=== PATIENT | male | born 1960 | race Hispanic/Latino ===

== ENCOUNTER 2017-01-15 11:10 | Day surgery (SDC) | payer MEDICARE, MEDICAID ==
[2017-01-15] MEDS ORDERED: diphenhydrAMINE HCl 25 MG CAP PO SCH (11:30)
[2017-01-15] MEDS ORDERED: Acetaminophen 500 MG TAB PO SCH (11:30)
[2017-01-15 17:59] VITALS: BP 116/62; TEMP 98
[2017-01-15 18:20] LABS: #Eosinphils 0.1 thou/uL (0.0-0.7); #Lymphocytes 0.6 thou/uL (1.20-3.40); #Monocytes 0.2 thou/uL (0.11-0.59); #Neutrophils 2.1 thou/uL (1.40-6.50); %Basophils 0.6 % (0.0-1.0); %Eosinophils 2.1 % (0.0-10.0); %Lymphocytes 19.8 % (21.0-51.0); %Monocytes 7.8 % (0.0-10.0); Hematocrit 27.2 % (42.0-52.0)
== END 2017-01-15 18:21 | disposition home or self-care (01) ==
LOC: ONC/OP 11:10
PROVIDERS: ATTEND Internal Medicine Hematology & Oncology
PROC: 30233N1 Transfusion of Nonautologous Red Blood Cells into Peripheral Vein, Percutaneous Approach (ICD-10-PCS; principal; 2017-01-15)
DX: D64.9 Anemia, unspecified (principal); D69.59 Other secondary thrombocytopenia; C09.9 Malignant neoplasm of tonsil, unspecified; K76.9 Liver disease, unspecified; E03.9 Hypothyroidism, unspecified; D61.818 Other pancytopenia; Z90.49 Acquired absence of other specified parts of digestive tract; Z80.0 Family history of malignant neoplasm of digestive organs
CPT/HCPCS: 36415; 36430; 77386; 82728; 85025; 86850; 86900; 86901; P9016

== ENCOUNTER 2017-02-05 10:48 | Day surgery (SDC) | payer MEDICARE, MEDICAID ==
[2017-02-05] MEDS ORDERED: Acetaminophen 500 MG TAB PO SCH ×2 (11:15)
[2017-02-05] MEDS ORDERED: diphenhydrAMINE HCl 25 MG CAP PO SCH ×2 (11:15)
[2017-02-05] MEDS ORDERED: Sodium Chloride 0.9% 20 ML ONE (12:14)
[2017-02-05 17:43] VITALS: BP 125/69; TEMP 98
== END 2017-02-05 17:43 | disposition home or self-care (01) ==
LOC: ONC/OP 10:48
PROVIDERS: ATTEND Internal Medicine Hematology & Oncology
PROC: 30233N1 Transfusion of Nonautologous Red Blood Cells into Peripheral Vein, Percutaneous Approach (ICD-10-PCS; principal; 2017-02-05)
DX: D64.9 Anemia, unspecified (principal); D69.6 Thrombocytopenia, unspecified; R16.2 Hepatomegaly with splenomegaly, not elsewhere classified; Q78.2 Osteopetrosis; Z90.49 Acquired absence of other specified parts of digestive tract; Z85.09 Personal history of malignant neoplasm of other digestive organs; Z80.0 Family history of malignant neoplasm of digestive organs
CPT/HCPCS: 36415; 36430; 77014; 77280; 77412; 86850; 86900; 86901; A4216; P9016

== ENCOUNTER 2017-02-26 12:29 | Emergency (ER) | payer MEDICARE, MEDICAID | END 2017-02-26 14:11 | disposition home or self-care (01) | LOC: ERS 12:29 | DX: K08.89 Other specified disorders of teeth and supporting structures (principal); K13.70 Unspecified lesions of oral mucosa; D64.9 Anemia, unspecified; Z85.09 Personal history of malignant neoplasm of other digestive organs | CPT/HCPCS: 99282 ==

== ENCOUNTER 2017-03-06 12:28 | Day surgery (SDC) | payer MEDICARE, MEDICAID ==
[2017-03-06] MEDS ORDERED: diphenhydrAMINE 25 MG CAP PO SCH (12:45)
[2017-03-06] MEDS ORDERED: Acetaminophen 500 MG TAB PO SCH (12:45)
[2017-03-06 19:17] VITALS: BP 120/58
[2017-03-06 21:47] LABS: Hematocrit 23.1 % (42.0-52.0); Mean Platelet Volume 9.3 fL (7.4-10.4); Red Blood Cell (RBC) Count 2.61 mill/uL (4.70-6.10)
[2017-03-06 22:07] LABS: Band 17 % (5-11); Metamyelocyte 3 % (0-0); Myelocyte 1 % (0-0); Neutrophil 57 % (42-75); Nucleated RBC 9 % (0); Polychromasia SLIGHT = 2-3 cells (100X) (0-2/hpf)
[2017-03-06 22:58] VITALS: TEMP 98.2
== END 2017-03-06 22:40 | disposition home or self-care (01) ==
LOC: ONC/OP 12:28
PROVIDERS: ATTEND Internal Medicine Medical Oncology
PROC: 30233N1 Transfusion of Nonautologous Red Blood Cells into Peripheral Vein, Percutaneous Approach (ICD-10-PCS; principal; 2017-03-06)
DX: D64.9 Anemia, unspecified (principal); D69.6 Thrombocytopenia, unspecified; M81.0 Age-related osteoporosis without current pathological fracture; R16.2 Hepatomegaly with splenomegaly, not elsewhere classified; Z90.49 Acquired absence of other specified parts of digestive tract; Z85.09 Personal history of malignant neoplasm of other digestive organs; Z80.0 Family history of malignant neoplasm of digestive organs
CPT/HCPCS: 36415; 36430; 85025; 86850; 86900; 86901; P9016

== ENCOUNTER 2017-04-17 10:38 | Day surgery (SDC) | payer MEDICARE, MEDICAID ==
[2017-04-17] MEDS ORDERED: Sodium Chloride 0.9% 20 ML ONE (11:00)
[2017-04-17 12:20] VITALS: TEMP 98
[2017-04-17] MEDS ORDERED: diphenhydrAMINE 25 MG CAP PO SCH (13:00)
[2017-04-17] MEDS ORDERED: Acetaminophen 500 MG TAB PO SCH (13:00)
[2017-04-17 17:05] VITALS: BP 125/68
[2017-04-17 17:56] LABS: Anisocytosis SLIGHT = 6-15 cells (100X) (0-5/hpf); Band 3 % (5-11); Hematocrit 26.6 % (42.0-52.0); Mean Platelet Volume 6.7 fL (7.4-10.4); Metamyelocyte 2 % (0-0); Neutrophil 53 % (42-75); Nucleated RBC 11 % (0); Polychromasia SLIGHT = 2-3 cells (100X) (0-2/hpf); Reactive Lymphocytes 3 % (0-10); White Blood Cell (WBC) Count 2.3 thou/uL (4.8-10.8)
== END 2017-04-17 17:16 | disposition home or self-care (01) ==
LOC: ONC/OP 10:38
PROVIDERS: ATTEND Nurse Practitioner Acute Care
PROC: 30233N1 Transfusion of Nonautologous Red Blood Cells into Peripheral Vein, Percutaneous Approach (ICD-10-PCS; principal; 2017-04-17)
DX: D64.9 Anemia, unspecified (principal); D69.6 Thrombocytopenia, unspecified; Z90.49 Acquired absence of other specified parts of digestive tract
CPT/HCPCS: 36430; 85025; 86850; 86900; 86901; A4216; P9016

== ENCOUNTER 2017-05-16 12:32 | Day surgery (SDC) | payer MEDICARE, MEDICAID ==
[2017-05-16] MEDS ORDERED: diphenhydrAMINE 25 MG CAP PO SCH (13:15)
[2017-05-16] MEDS ORDERED: Acetaminophen 500 MG TAB PO SCH (13:15)
[2017-05-16] MEDS ORDERED: Sodium Chloride 0.9% 20 ML ONE (13:37)
[2017-05-16 19:25] VITALS: BP 112/61; TEMP 98.9
[2017-05-16 19:56] LABS: Hemoglobin 8.7 g/dL (14.0-18.0); Mean Corpuscular HGB CONC 32.7 g/dL (32.0-36.0); Mean Corpuscular Hemoglobin 29.9 pg (27.0-31.0); Mean Corpuscular Volume 91.4 fl (80.0-94.0); Mean Platelet Volume 10.5 fL (7.4-10.4); Platelet Count 52 thou/uL (130-400); RBC Distribution Width 17.7 % (11.5-14.5); Red Blood Cell (RBC) Count 2.89 mill/uL (4.70-6.10); White Blood Cell (WBC) Count 3.1 thou/uL (4.8-10.8)
[2017-05-16 20:17] LABS: Anisocytosis MODERATE=16-30 cells (100X) (0-5/hpf); Band 16 % (5-11); Eosinophils 4 % (0-10); Lymphocytes 24 % (21-51); MDiff Complete? YES; Metamyelocyte 4 % (0-0); Monocytes 8 % (0-10); Myelocyte 7 % (0-0); Neutrophil 35 % (42-75); Nucleated RBC 8 % (0); Ovalocytes SLIGHT = 2-5 cells (100X) (0-1/hpf); PLT Morphology Comment Appears Decreased; Polychromasia MODERATE = 3-4 cells (100X) (0-2/hpf); Promyelocytes 1 % (0-0)
== END 2017-05-16 19:32 | disposition home or self-care (01) ==
LOC: ONC/OP 12:32
PROVIDERS: ATTEND Internal Medicine Hematology & Oncology
PROC: 30233N1 Transfusion of Nonautologous Red Blood Cells into Peripheral Vein, Percutaneous Approach (ICD-10-PCS; principal; 2017-05-16)
DX: D64.9 Anemia, unspecified (principal); D69.59 Other secondary thrombocytopenia; M81.0 Age-related osteoporosis without current pathological fracture; D70.4 Cyclic neutropenia; Z98.890 Other specified postprocedural states; Z85.89 Personal history of malignant neoplasm of other organs and systems; Z86.010 Personal history of colon polyps
CPT/HCPCS: 36415; 36430; 85025; 86850; 86900; 86901; A4216; P9016

== ENCOUNTER 2017-06-11 12:49 | Day surgery (SDC) | payer MEDICARE, MEDICAID ==
[2017-06-11] MEDS ORDERED: diphenhydrAMINE 25 MG CAP PO SCH (13:30)
[2017-06-11] MEDS ORDERED: Acetaminophen 500 MG TAB PO SCH (13:30)
[2017-06-11] MEDS ORDERED: Sodium Chloride 0.9% 30 ML ONE (14:04)
[2017-06-11 22:01] VITALS: BP 117/62; TEMP 98.3
[2017-06-11 22:54] LABS: Anisocytosis SLIGHT = 6-15 cells (100X) (0-5/hpf); Band 6 % (5-11); Hemoglobin 9.5 g/dL (14.0-18.0); Lymphocytes 24 % (21-51); MDiff Complete? YES; Mean Corpuscular HGB CONC 32.9 g/dL (32.0-36.0); Mean Corpuscular Hemoglobin 29.5 pg (27.0-31.0); Mean Corpuscular Volume 89.8 fl (80.0-94.0); Monocytes 1 % (0-10); Neutrophil 69 % (42-75); Nucleated RBC 2 % (0); PLT Morphology Comment Appears Decreased; Platelet Count 54 thou/uL (130-400); RBC Distribution Width 16.2 % (11.5-14.5); Red Blood Cell (RBC) Count 3.21 mill/uL (4.70-6.10); White Blood Cell (WBC) Count 4.1 thou/uL (4.8-10.8)
== END 2017-06-11 22:14 | disposition home or self-care (01) ==
LOC: ONC/OP 12:49
PROVIDERS: ATTEND Nurse Practitioner Acute Care
PROC: 30233N1 Transfusion of Nonautologous Red Blood Cells into Peripheral Vein, Percutaneous Approach (ICD-10-PCS; principal; 2017-06-11)
DX: D64.9 Anemia, unspecified (principal); D69.59 Other secondary thrombocytopenia; M81.0 Age-related osteoporosis without current pathological fracture; R16.2 Hepatomegaly with splenomegaly, not elsewhere classified; Z90.49 Acquired absence of other specified parts of digestive tract; Z85.09 Personal history of malignant neoplasm of other digestive organs
CPT/HCPCS: 36415; 36430; 85025; 86850; 86900; 86901; A4216; P9016

== ENCOUNTER 2017-07-22 09:58 | Day surgery (SDC) | payer MEDICARE, MEDICAID ==
[2017-07-22] MEDS ORDERED: Sodium Chloride 0.9% 20 ML ONE (10:37)
[2017-07-22] MEDS ORDERED: diphenhydrAMINE 25 MG CAP PO SCH (11:00)
[2017-07-22] MEDS ORDERED: Acetaminophen 500 MG TAB PO SCH (11:00)
[2017-07-22 14:07] VITALS: TEMP 97.6
[2017-07-22 16:11] VITALS: BP 110/63
== END 2017-07-22 16:12 | disposition home or self-care (01) ==
LOC: ONC/OP 09:58
PROVIDERS: ATTEND Internal Medicine Hematology & Oncology
PROC: 30233N1 Transfusion of Nonautologous Red Blood Cells into Peripheral Vein, Percutaneous Approach (ICD-10-PCS; principal; 2017-07-22)
DX: Q78.2 Osteopetrosis (principal); D63.8 Anemia in other chronic diseases classified elsewhere; D69.59 Other secondary thrombocytopenia; R16.2 Hepatomegaly with splenomegaly, not elsewhere classified; Z90.49 Acquired absence of other specified parts of digestive tract; Z85.09 Personal history of malignant neoplasm of other digestive organs
CPT/HCPCS: 36430; 86850; 86900; 86901; A4216; P9016

== ENCOUNTER 2017-07-24 08:10 | Outpatient (CLI) | payer MEDICARE, MEDICAID ==
--- NOTE | 2017-07-24 10:35 | HP ---
DATE OF SERVICE: 07/24/2017 HISTORY OF PRESENT ILLNESS: Mr. Kareem Rivers is a very pleasant 56-year-old gentleman, Sp alvaro speaking only, who is referred for evaluation for hyperbaric oxygen therapy for treatment of ch ronic osteomyelitis. 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 Praveen South. Today, the patient presen ts with a lesion of the right jaw which is draining purulent material. Records accompanying the angie ent showed that the patient was seen on 06/07/2017 and cultures were taken of the right mandibular ma ss which was draining purulent material. Apparently, the patient was given amoxicillin and Bactrim e mpirically and the patient reported on 06/11/2017 that his pain had diminished and that he was able t o sleep at night. The patient also has an appointment for evaluation by Dr. Fer Cooper of Infecti ous Diseases on 07/30/2017 for evaluation for IV antibiotics for treatment of mandibular osteomyeliti s. The patient's medical history is significant for multiple oral surgeries and a history of recurre nt periodontal abscesses. PAST MEDICAL HISTORY: 1. Chronic back pain. 2. 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 4. Scoliosis. 5. Anemia. 6. 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 PAST SURGICAL HISTORY: 1. Right femur fracture repair. 2. Multiple oral surgeries. 3. I&D of mandibular abscess. 4. 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 5. Laparoscopic cholecystectomy. MEDICATIONS: The patient states he is not taking any medications at the present time. ALLERGIES: No known diagnosed allergies. SOCIAL HISTORY: The patient denies any current history of tobacco or ETOH use. FAMILY HISTORY: Noncontributory. PHYSICAL EXAMINATION: VITAL SIGNS: Temperature 97.9, pulse 82, respirations 14, blood pressure 129/62. GENERAL: A 56-year-old gentleman sitting on chair in examination room in no acute distress. HEENT: Normocephalic. A cutaneous lesion of the right jaw is present which measures approximately 2 .0 x 1.0 cm. The lesion is associated with the drainage of purulent material. No cellulitis of the right jaw is appreciated. No maceration of the skin of the right jaw is present. NECK: No nuchal rigidity. CHEST: Clear to auscultation. CARDIAC: Regular rate and rhythm. ABDOMEN: Soft. EXTREMITIES: No clubbing or cyanosis. NEUROLOGIC: Grossly nonfocal. ASSESSMENT AND PLAN: 1. Chronic osteomyelitis of the mandible. The patient has been referred to the [facility] for dhruv dinaation for hyperbaric oxygen therapy. The patient also has an appointment for evaluation by Infecti ous Diseases on 07/30/2017. The importance of keeping this appointment has been explained to the pat ient. Arrangements will also be made for the patient to be seen in consultation by Oral Surgery for evaluation for surgical debridement. As stated above, the patient's medical history is also signific ant for moderately poorly differentiated adenocarcinoma of the gallbladder, status post surgery, radi ation and chemotherapy, specifically capecitabine. The patient denies any history of congestive hear t failure, seizures, crushing chest trauma, pneumothorax, hereditary spherocytosis, recent retinal santiago rgery, or the administration of any chemotherapeutic agents which would contraindicate hyperbaric oxy gen therapy. The patient is amenable to a trial of hyperbaric oxygen therapy. He states he would be able to report to the [facility] on a daily basis for treatments. I will see Mr. Rivers after hi s evaluation by Infectious Diseases and oral surgery. I will also discuss the treatment plan with or al surgery. 2. Chronic back pain. 3. 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 4. Osteopetrosis. 5. Scoliosis. 6. Anemia. 7. 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
[2017-07-24] MEDS ORDERED: Sodium Chloride 0.9% 15 ML NEB ONE (17:56)
== END 2017-07-24 08:11 | disposition home or self-care (01) ==
LOC: WCC 08:10
PROVIDERS: ATTEND Family Medicine
DX: M27.2 Inflammatory conditions of jaws (principal); M54.5 Low back pain; G89.29 Other chronic pain; R16.2 Hepatomegaly with splenomegaly, not elsewhere classified; D70.4 Cyclic neutropenia; M81.0 Age-related osteoporosis without current pathological fracture; M41.9 Scoliosis, unspecified; D64.9 Anemia, unspecified; C23 Malignant neoplasm of gallbladder
CPT/HCPCS: 97139; G0463; 99202; A4218

== ENCOUNTER → 2017-08-01 | Day surgery (SDC) | payer MEDICARE, MEDICAID ==
[~2017-08-01] MED LIST: Heparin 1,000 UNITS/ML VIAL ONE
--- NOTE | 2017-08-01 12:08 | SPC ---
ULTRASOUND GUIDED LEFT UPPER EXTREMITY PICC LINE PLACEMENT: Date: 08/01/17 HISTORY: Jaw osteomyelitis. COMPARISON: None. EXPOSURE: 0.9 minutes. 4926 mGy*cm^2. FINDINGS: Technically successful left upper extremity PICC line placement with ultrasound guidance. Single lume n 5 Armenian catheter terminates in the right atrium. Trim length is 43 cm. Catheter flushes and aspira sherice without difficulty. TECHNIQUE: Consent obtained to perform a left upper extremity PICC line placement. Left arm was prepped and drap ed in the sterile fashion. 1% lidocaine, buffered with sodium bicarbonate, was used for local anesthe giuliano. Under [id number] guidance, micropuncture needle was used to cannulate the brachial vein. A 0.01 8 guidewire was advanced through the needle to the level of the inferior vena cava to document venous access. Wire was subsequently pulled back to the right atrium. Tract was dilated. Single lumen 5 Ulises nch catheter was advanced over the wire. Catheter does flush and aspirate without difficulty. Trim le ngth is 43 cm. IMPRESSION: Successful left upper extremity PICC line placement with ultrasound guidance. POS: [facility]
== END ==
LOC: SPEC 07:21
PROVIDERS: ATTEND Internal Medicine Infectious Disease
PROC: 02HV33Z Insertion of Infusion Device into Superior Vena Cava, Percutaneous Approach (ICD-10-PCS; principal; 2017-08-01)
PROC: B548ZZA Ultrasonography of Superior Vena Cava, Guidance (ICD-10-PCS; 2017-08-01)
DX: M27.2 Inflammatory conditions of jaws (principal); G89.29 Other chronic pain; R16.2 Hepatomegaly with splenomegaly, not elsewhere classified; Q78.2 Osteopetrosis; M41.9 Scoliosis, unspecified; Z98.890 Other specified postprocedural states; Z85.09 Personal history of malignant neoplasm of other digestive organs; Z92.3 Personal history of irradiation; Z92.21 Personal history of antineoplastic chemotherapy
CPT/HCPCS: 36569; C1751; J1644

== ENCOUNTER → 2017-08-21 | Outpatient (CLI) | payer MEDICARE, MEDICAID | LOC: HBO 15:11 | PROVIDERS: ATTEND Family Medicine | DX: M27.2 Inflammatory conditions of jaws (principal) | CPT/HCPCS: 97139; G0277 ==

== ENCOUNTER 2017-08-22 10:18 | Outpatient (CLI) | payer MEDICARE, MEDICAID | END 2017-08-22 10:19 | disposition home or self-care (01) | LOC: HBO 10:18 | PROVIDERS: ATTEND Family Medicine | DX: M27.2 Inflammatory conditions of jaws (principal) | CPT/HCPCS: G0277 ==

== ENCOUNTER 2017-08-26 10:29 | Outpatient (CLI) | payer MEDICARE, MEDICAID | END 2017-08-26 10:30 | disposition home or self-care (01) | LOC: HBO 10:29 | PROVIDERS: ATTEND Family Medicine | DX: M27.2 Inflammatory conditions of jaws (principal) | CPT/HCPCS: G0277 ==

== ENCOUNTER 2017-08-27 08:13 | Outpatient (CLI) | payer MEDICARE, MEDICAID | END 2017-08-27 08:14 | disposition home or self-care (01) | LOC: HBO 08:13 | PROVIDERS: ATTEND Family Medicine | DX: M27.2 Inflammatory conditions of jaws (principal) | CPT/HCPCS: G0277 ==

== ENCOUNTER 2017-08-28 11:15 | Outpatient (CLI) | payer MEDICARE, MEDICAID | END 2017-08-28 11:16 | disposition home or self-care (01) | LOC: HBO 11:15 | PROVIDERS: ATTEND Family Medicine | DX: M27.2 Inflammatory conditions of jaws (principal) | CPT/HCPCS: G0277 ==

== ENCOUNTER 2017-08-29 10:37 | Outpatient (CLI) | payer MEDICARE, MEDICAID | END 2017-08-29 10:38 | disposition home or self-care (01) | LOC: HBO 10:37 | PROVIDERS: ATTEND Family Medicine | DX: M27.2 Inflammatory conditions of jaws (principal) | CPT/HCPCS: G0277 ==

== ENCOUNTER 2017-09-03 10:15 | Outpatient (CLI) | payer MEDICARE, MEDICAID | END 2017-09-03 10:16 | disposition home or self-care (01) | LOC: HBO 10:15 | PROVIDERS: ATTEND Family Medicine | DX: M27.2 Inflammatory conditions of jaws (principal) | CPT/HCPCS: G0277 ==

== ENCOUNTER 2017-09-04 10:20 | Outpatient (CLI) | payer MEDICARE, MEDICAID | END 2017-09-04 10:21 | disposition home or self-care (01) | LOC: HBO 10:20 | PROVIDERS: ATTEND Family Medicine | DX: M27.2 Inflammatory conditions of jaws (principal) | CPT/HCPCS: G0277 ==

== ENCOUNTER 2017-09-09 10:18 | Outpatient (CLI) | payer MEDICARE, MEDICAID | END 2017-09-09 10:19 | disposition home or self-care (01) | LOC: HBO 10:18 | PROVIDERS: ATTEND Family Medicine | DX: M27.2 Inflammatory conditions of jaws (principal) | CPT/HCPCS: G0277 ==

== ENCOUNTER 2017-09-10 10:25 | Outpatient (CLI) | payer MEDICARE, MEDICAID | END 2017-09-10 10:26 | disposition home or self-care (01) | LOC: HBO 10:25 | PROVIDERS: ATTEND Family Medicine | DX: M27.2 Inflammatory conditions of jaws (principal) | CPT/HCPCS: G0277 ==

== ENCOUNTER 2017-09-11 10:19 | Outpatient (CLI) | payer MEDICARE, MEDICAID | END 2017-09-11 10:20 | disposition home or self-care (01) | LOC: HBO 10:19 | PROVIDERS: ATTEND Family Medicine | DX: M27.2 Inflammatory conditions of jaws (principal) | CPT/HCPCS: G0277 ==

== ENCOUNTER → 2017-09-12 | Outpatient (CLI) | payer MEDICARE, MEDICAID | LOC: HBO 11:26 | PROVIDERS: ATTEND Family Medicine | DX: M27.2 Inflammatory conditions of jaws (principal) | CPT/HCPCS: G0277 ==

== ENCOUNTER 2017-09-17 08:27 | Outpatient (CLI) | payer MEDICARE, MEDICAID | END 2017-09-17 08:28 | disposition home or self-care (01) | LOC: HBO 08:27 | PROVIDERS: ATTEND Family Medicine | DX: M27.2 Inflammatory conditions of jaws (principal) | CPT/HCPCS: G0277 ==

== ENCOUNTER 2017-09-18 08:16 | Outpatient (CLI) | payer MEDICARE, MEDICAID | END 2017-09-18 08:17 | disposition home or self-care (01) | LOC: HBO 08:16 | PROVIDERS: ATTEND Family Medicine | DX: M27.2 Inflammatory conditions of jaws (principal) | CPT/HCPCS: G0277 ==

== ENCOUNTER 2017-09-19 09:51 | Outpatient (CLI) | payer MEDICARE, MEDICAID ==
[2017-09-19] MEDS ORDERED: Iopamidol 370 76% 100 ML VIAL ONE (11:41)
--- NOTE | 2017-09-19 12:05 | CT ---
CT ABDOMEN AND PELVIS WITH IV CONTRAST: INDICATIONS: Malignant neoplasm of the gallbladder. COMPARISON: Prior CT abdomen and pelvis from [facility], dated 11/29/2016. CORRELATION: PET CT from 12/11/2016, performed without IV contrast. TECHNIQUE: Multiple axial tomograms obtained through the abdomen and pelvis with IV enhancement. Oral contrast was administered. FINDINGS: The lung bases are clear. Post cholecystectomy changes are again noted with surgical clips in the gallbladder fossa. The low d ensity mass-like area seen within the liver, at the gallbladder fossa, on the prior exam, is much sma ller today. A small focus of low attenuation at the gallbladder fossa, adjacent to the surgical clip s measures in the 7 to 8 mm range. This may, however, represent artifact from the adjacent clips, ra ther than residual tumor. The liver is otherwise unremarkable. Splenomegaly is again noted, as was described previously. The pancreas is unremarkable. The adrenal glands and kidneys are unremarkable. The small, 1.3 cm cyst in the right renal cortex is stable. Small bowel loops appear unremarkable. Colon is unremarkable. Aorta is normal caliber. No adenopat hy identified in the abdomen. The left inguinal hernia is again noted. The left inguinal ring is di lated, and there is mesenteric fat in the left inguinal ring, as well as fluid density in the more in ferior portion of the left inguinal ring, similar to the prior study. The urinary bladder is mostly contracted. There is thickening of the urinary bladder wall anteriorly and on the left, and this portion of the b ladder retracts into the inguinal ring, as noted on the prior study. This is not as obvious today du e to the contraction of the bladder on today's study. There are nonspecific inguinal lymph nodes bilaterally, which are mildly enlarged, measuring up to 2 cm on both sides. These inguinal lymph nodes appear stable from prior exam. Osseous structures again show diffuse osteosclerosis, which was described previously. IMPRESSION: 1. The low density mass like area seen in the gallbladder fossa on the prior exam has essentially re solved. A tiny low density focus remains, although this may be artifactual due to the adjacent metal lic surgical clips. 2. Splenomegaly and borderline hepatomegaly again noted, stable. 3. Left inguinal hernia again noted with thickening of the anterior left lateral bladder wall at the site of this inguinal hernia, which was described previously and is stable. 4. Nonspecific bilateral inguinal lymph nodes appear stable. 5. Diffuse osteosclerosis again noted. 6. Small right renal cystic lesion is stable. POS: [facility]
== END 2017-09-19 09:52 | disposition home or self-care (01) ==
LOC: CT 09:51
PROVIDERS: ATTEND Internal Medicine Hematology & Oncology
DX: C23 Malignant neoplasm of gallbladder (principal); N28.1 Cyst of kidney, acquired; N32.89 Other specified disorders of bladder; K40.90 Unilateral inguinal hernia, without obstruction or gangrene, not specified as recurrent; M85.80 Other specified disorders of bone density and structure, unspecified site; R16.2 Hepatomegaly with splenomegaly, not elsewhere classified
CPT/HCPCS: 74177

== ENCOUNTER 2017-09-20 07:05 | Day surgery (SDC) | payer MEDICARE, MEDICAID ==
[2017-09-20] MEDS ORDERED: diphenhydrAMINE 25 MG CAP PO SCH (08:30)
[2017-09-20] MEDS ORDERED: Acetaminophen 500 MG TAB PO SCH (08:30)
[2017-09-20] MEDS ORDERED: Sodium Chloride 0.9% 40 ML ONE (09:11)
[2017-09-20 14:00] LABS: Hemoglobin 7.4 g/dL (14.0-18.0); Mean Corpuscular HGB CONC 33.6 g/dL (32.0-36.0); Mean Corpuscular Hemoglobin 30.2 pg (27.0-31.0); Mean Corpuscular Volume 89.8 fl (80.0-94.0); Mean Platelet Volume 10.7 fL (7.4-10.4); Platelet Count 38 thou/uL (130-400); Red Blood Cell (RBC) Count 2.45 mill/uL (4.70-6.10)
[2017-09-20 14:15] LABS: Anisocytosis MODERATE=16-30 cells (100X) (0-5/hpf); Band 17 % (5-11); Eosinophils 4 % (0-10); Lymphocytes 21 % (21-51); MDiff Complete? YES; Metamyelocyte 3 % (0-0); Monocytes 4 % (0-10); Myelocyte 8 % (0-0); Neutrophil 41 % (42-75); Nucleated RBC 7 % (0); Ovalocytes SLIGHT = 2-5 cells (100X) (0-1/hpf); PLT Morphology Comment Appears Decreased; Polychromasia MODERATE = 3-4 cells (100X) (0-2/hpf); Reactive Lymphocytes 2 % (0-10); White Blood Cell (WBC) Count 2.1 thou/uL (4.8-10.8)
[2017-09-20 17:17] VITALS: TEMP 98.4
[2017-09-20 19:15] VITALS: BP 134/65
== END 2017-09-20 19:15 | disposition home or self-care (01) ==
LOC: ONC/OP 07:05
PROVIDERS: ATTEND Internal Medicine Hematology & Oncology
DX: D64.9 Anemia, unspecified (principal); D69.6 Thrombocytopenia, unspecified
CPT/HCPCS: 36430; 85025; 86850; 86900; 86901; A4216; P9016

== ENCOUNTER 2017-09-23 08:17 | Outpatient (CLI) | payer MEDICARE, MEDICAID | END 2017-09-23 08:18 | disposition home or self-care (01) | LOC: HBO 08:17 | PROVIDERS: ATTEND Family Medicine | DX: M27.2 Inflammatory conditions of jaws (principal) | CPT/HCPCS: G0277 ==

== ENCOUNTER → 2017-09-24 | Outpatient (CLI) | payer MEDICARE, MEDICAID | LOC: HBO 10:27 | PROVIDERS: ATTEND Family Medicine | DX: M27.2 Inflammatory conditions of jaws (principal) | CPT/HCPCS: G0277 ==

== ENCOUNTER 2017-09-25 08:15 | Outpatient (CLI) | payer MEDICARE, MEDICAID | END 2017-09-25 08:16 | disposition home or self-care (01) | LOC: HBO 08:15 | PROVIDERS: ATTEND Family Medicine | DX: M27.2 Inflammatory conditions of jaws (principal) | CPT/HCPCS: G0277 ==

== ENCOUNTER 2017-09-26 08:23 | Outpatient (CLI) | payer MEDICARE, MEDICAID | END 2017-09-26 08:24 | disposition home or self-care (01) | LOC: HBO 08:23 | PROVIDERS: ATTEND Family Medicine | DX: M27.2 Inflammatory conditions of jaws (principal) | CPT/HCPCS: G0277 ==

== ENCOUNTER 2017-09-30 08:19 | Outpatient (CLI) | payer MEDICARE, MEDICAID | END 2017-09-30 08:20 | disposition home or self-care (01) | LOC: HBO 08:19 | PROVIDERS: ATTEND Family Medicine | DX: M27.2 Inflammatory conditions of jaws (principal) | CPT/HCPCS: G0277 ==

== ENCOUNTER 2017-10-01 08:17 | Outpatient (CLI) | payer MEDICARE, MEDICAID | END 2017-10-01 08:18 | disposition home or self-care (01) | LOC: HBO 08:17 | PROVIDERS: ATTEND Family Medicine | DX: M27.2 Inflammatory conditions of jaws (principal) | CPT/HCPCS: G0277 ==

== ENCOUNTER 2017-10-02 09:55 | Outpatient (CLI) | payer MEDICARE, MEDICAID | END 2017-10-02 09:56 | disposition home or self-care (01) | LOC: HBO 09:55 | PROVIDERS: ATTEND Family Medicine | DX: M27.2 Inflammatory conditions of jaws (principal) | CPT/HCPCS: G0277 ==

== ENCOUNTER 2017-10-07 08:16 | Outpatient (CLI) | payer MEDICARE, MEDICAID | END 2017-10-07 08:17 | disposition home or self-care (01) | LOC: HBO 08:16 | PROVIDERS: ATTEND Family Medicine | DX: M27.2 Inflammatory conditions of jaws (principal) | CPT/HCPCS: G0277 ==

== ENCOUNTER 2017-10-09 13:28 | Outpatient (CLI) | payer MEDICARE, MEDICAID | END 2017-10-09 13:29 | disposition home or self-care (01) | LOC: HBO 13:28 | PROVIDERS: ATTEND Family Medicine | DX: M27.2 Inflammatory conditions of jaws (principal) | CPT/HCPCS: G0277 ==

== ENCOUNTER → 2017-10-09 | Outpatient (CLI) | payer MEDICARE, MEDICAID | LOC: HBO 17:48 | PROVIDERS: ATTEND Family Medicine | DX: M27.2 Inflammatory conditions of jaws (principal) | CPT/HCPCS: G0277 ==

== ENCOUNTER 2017-10-10 08:19 | Outpatient (CLI) | payer MEDICARE, MEDICAID | END 2017-10-10 08:20 | disposition home or self-care (01) | LOC: HBO 08:19 | PROVIDERS: ATTEND Family Medicine | DX: M27.2 Inflammatory conditions of jaws (principal) | CPT/HCPCS: G0277 ==

== ENCOUNTER 2017-10-14 08:18 | Outpatient (CLI) | payer MEDICARE, MEDICAID | END 2017-10-14 08:19 | disposition home or self-care (01) | LOC: HBO 08:18 | PROVIDERS: ATTEND Family Medicine | DX: M27.2 Inflammatory conditions of jaws (principal) | CPT/HCPCS: G0277 ==

== ENCOUNTER 2017-10-15 11:26 | Outpatient (CLI) | payer MEDICARE, MEDICAID | END 2017-10-15 11:27 | disposition home or self-care (01) | LOC: HBO 11:26 | PROVIDERS: ATTEND Family Medicine | DX: M27.2 Inflammatory conditions of jaws (principal) | CPT/HCPCS: G0277 ==

== ENCOUNTER 2018-02-17 11:20 | Inpatient (IN) | payer MEDICARE, MEDICAID ==
[2018-02-17] MEDS ORDERED: ISOVUE-370 76%-LOCM 1 ML ONE (12:04)
[2018-02-17] MEDS ORDERED: Morphine 10 MG/ML VIAL ONE (12:45)
[2018-02-17 12:49] LABS: INR-International Normal Ratio 1.1; Prothrombin Time 14.1 SEC (12.0-14.7)
[2018-02-17 12:50] LABS: PTT 37.3 SEC (22.9-36.1)
[2018-02-17 13:05] LABS: ALT (SGPT) 17 U/L (8-55); AST (SGOT) 26 U/L (5-34); Albumin 3.9 g/dL (3.5-5.0); Alkaline Phosphatase 121 U/L (40-150); Anion Gap 11 mmol/L (10-20); BUN (Urea Nitrogen) 11 mg/dL (8.4-25.7); Bilirubin, Total 0.7 mg/dL (0.2-1.2); Calc. Creatinine Clearance 0 mL/min (70-130); Calcium 9.2 mg/dL (7.8-10.44); Carbon Dioxide 25 mmol/L (22-29); Chloride 104 mmol/L (98-107); Estimated GFR-MDRD Greater than 90; Globulin 3.5 g/dL (2.4-3.5); Glucose 96 mg/dL (70-105); Protein, Total 7.4 g/dL (6.0-8.3); Sodium 136 mmol/L (136-145)
[2018-02-17 13:25] LABS: Band 17 % (5-11); Lymphocytes 25 % (21-51); MDiff Complete? YES; Mean Corpuscular Hemoglobin 26.9 pg (27.0-31.0); Mean Corpuscular Volume 86.7 fL (78.0-98.0); Mean Platelet Volume 5.1 fL (7.4-10.4); Metamyelocyte 2 % (0-0); Monocytes 3 % (0-10); Myelocyte 15 % (0-0); Neutrophil 37 % (42-75); Nucleated RBC 10 % (0); Ovalocytes MODERATE= 6-15 cells (100X) (0-1/hpf); PLT Morphology Comment Appears Decreased; Platelet Count 60 thou/uL (130-400); Polychromasia MODERATE = 3-4 cells (100X) (0-2/hpf); RBC Distribution Width 19.8 % (11.5-14.5); Red Blood Cell (RBC) Count 2.96 mill/uL (4.70-6.10); Reflex for Review?? YES; Tear Drops MODERATE= 6-15 cells (100X) (0-1/hpf); White Blood Cell (WBC) Count 4.2 thou/uL (4.8-10.8)
[2018-02-17] MEDS ORDERED: Piperacillin/Tazobactam 3.375 GM VIAL ONE (13:41)
--- NOTE | 2018-02-17 14:04 | CT ---
CT OF THE NECK SOFT TISSUES WITH CONTRAST: 02/17/18 HISTORY: Left sided facial and ear swelling with pain. TECHNIQUE: Multiple contiguous axial images were obtained in a CT of the neck soft tissues with contrast. Sagitt al and coronal reformats were performed. FINDINGS: there is mild soft tissue swelling of the left face. IN the region of the left zygomatic arch there i s a 1.5 cm well circumscribed lipoma. No focal fluid collection is identified. There may be a small a mount of edema within the left masseter muscle compared to the right. The parotid glands and submandi bular glands are unremarkable. No cervical adenopathy is appreciated. The visualized intracranial structures and lung apices are unr emarkable. There is diffuse density of the bones. There is a bone within bone appearance within the mandible. IMPRESSION: 1. Soft tissue welling of the left face without underlying fluid collection. 2. Bone within bone appearance of the mandible. This could be secondary to bone graft material i n the mandible. This could also be secondary to an abnormality in bone metabolism such as osteopetros is. POS: [facility]
[2018-02-17] MEDS ORDERED: Ondansetron ODT 4 MG TAB SL PRN (16:43)
[2018-02-17] MEDS ORDERED: Acetaminophen 325 MG TAB PO PRN (16:43)
[2018-02-17] MEDS ORDERED: Ondansetron PF 4 MG/2 ML Vial IVP PRN (16:43)
--- NOTE | 2018-02-17 16:45 | PDOC.FPRHP ---
- History of Present Illness Chief Complaint: left jaw pain History of Present Illness: Mr. Rivers is a 57YO gentleman with a PM significant for adult osteopetrosis of the jaw w/ h/o associated osteomyelitis and a h/o gallbaldder adenocarcinoma s/p cholecystectomy, chemo and radiation therapy who presented to the ED with a chief complaint of progressively worsening left jaw pain and swelling that began yesterday morning. The patient reports that shortly after he woke up yesterday he began to have a sharp stabbing pain in his left jaw. He states it got progressively worse over the course of the day and by last night it was 10/10 in severity and kept him up all night. He endorses some associated chills and decreased PO intake due to decreased ROM in his jaw 2/2 the pain. He denies any alleviating factors as well as any N/V, and arthralgias. Of note, on ROS the patient also endorsed having episodic abdominal pain that has been ongoing for the last month. He denies any specific aggravating or alleviating factors but states that it occasionally occurs in his left side or his RUQ. Reports some associated gas and bloating as well as melena. Endorses a FH of colon CA in his mother. Denies any hematochezia or reflux symptoms. ED Course: 1L NS, 1g IV vanc, 3.375g of zosyn, and IV morphine - Allergies/Adverse Reactions Allergies Allergy/AdvReac Type Severity Reaction Status Date / Time No Known Allergies Allergy Verified 10/25/15 19:37 - Home Medications Medication Instructions Recorded Confirmed Type Penicillin V Potassium 250 mg PO BID 02/17/18 02/17/18 History - History PMHx: osteopetrosis of left jaw w/ osteomyelitis, gallbladder adenocarcinoma s/ p guillermo, chemo and radiation therapy PSHx: cholecystectomy, R leg surgery, L jaw surgery FHx: Mother- Colon CA Social: Patient denies any former or current tobacco or drug use. Did report a PMH of QD EtOH use but quit drinking ~3 years ago. - Review of Systems General: reports: fever/chills. denies: weight/appetite/sleep changes Eyes: reports: vision changes. denies: eye pain ENT: denies: nasal congestion, rhinorrhea Respiratory: denies: cough, shortness of breath Cardiovascular: denies: chest pain, edema Gastrointestinal: reports: abdominal pain, GI bleeding (melena). denies: nausea , vomiting, diarrhea, constipation Genitourinary: reports: other (no hematuria). denies: dysuria Skin: reports: itching. denies: rashes Musculoskeletal: denies: swelling, arthritis/arthralgias Neurological: denies: numbness, syncope, weakness Psychological: denies: anxiety, depression - Vital signs BP: 120/76 HR: 86 RR: 16 Tmax: 98F Pox: 98% on RA Wt: 67.68kg - Physical Exam Constitutional: NAD, awake, alert and oriented, well developed HEENT: normocephalic and atraumatic, conjunctiva clear, no scleral icterus, grossly normal vision, grossly normal hearing, MMM, oropharynx clear Neck: supple, FROM, no LAD Heart: RRR, normal S1/S2, pulses present, no edema Lungs: CTAB, no respiratory distress, good air movement, no rales/rhonchi, no wheezing Abdomen: soft, bowel sounds present, no masses/distention, no hernias, other -Abdomen: TTP in L mid-abdomen and RUQ; no guarding or rebound tenderness Musculoskeletal: normal structure, ROM grossly normal Neurological: no focal deficit, CN II-XII intact Skin: no rash/lesions, good turgor, capillary refill <2 seconds, no jaundice Heme/Lymphatic: no unusual bruising or bleeding, no purpura Psychiatric: normal mood and affect, good judgment and insight, intact recent and remote memory FMR H&P: Results - Labs Result Diagrams: 02/17/18 12:31 02/17/18 12:31 Lab results: WBC 4.2 thou/uL (4.8-10.8) L 02/17/18 12:31 Hgb 8.0 g/dL (14.0-18.0) L 02/17/18 12:31 Hct 25.7 % (42.0-52.0) L 02/17/18 12:31 MCV 86.7 fL (78.0-98.0) 02/17/18 12:31 Plt Count 60 thou/uL (130-400) L 02/17/18 12:31 Band Neuts % (Manual) 17 % (5-11) H 02/17/18 12:31 ESR Westergren 113 mm/hr (Less than 20) 10/29/18 12:31 Sodium 136 mmol/L (136-145) 02/17/18 12:31 Potassium 4.0 mmol/L (3.5-5.1) 02/17/18 12:31 Chloride 104 mmol/L (98-107) 02/17/18 12:31 Carbon Dioxide 25 mmol/L (22-29) 02/17/18 12:31 BUN 11 mg/dL (8.4-25.7) 02/17/18 12:31 Creatinine 0.65 mg/dL (0.6-1.3) 02/17/18 12:31 Glucose 96 mg/dL (70-105) 02/17/18 12:31 Calcium 9.2 mg/dL (7.8-10.44) 02/17/18 12:31 Total Bilirubin 0.7 mg/dL (0.2-1.2) 02/17/18 12:31 AST 26 U/L (5-34) 02/17/18 12:31 ALT 17 U/L (8-55) 02/17/18 12:31 Alkaline Phosphatase 121 U/L (40-150) 02/17/18 12:31 C-Reactive Protein 3.46 mg/dL (= or < 0.5) H 02/17/18 12:31 Serum Total Protein 7.4 g/dL (6.0-8.3) 02/17/18 12:31 Albumin 3.9 g/dL (3.5-5.0) 02/17/18 12:31 - Radiology Interpretation Other Status: report reviewed by me Additional comment: Ct head and neck - no abscess but evidence of osteopetrosis in L jaw FMR H&P: A/P - Problem List (1) Osteomyelitis of mandible Current Visit: Yes Status: Suspected Code(s): M27.2 - INFLAMMATORY CONDITIONS OF JAWS (2) Adenocarcinoma of gallbladder Current Visit: Yes Status: Acute Code(s): C23 - MALIGNANT NEOPLASM OF GALLBLADDER (3) Anemia, aplastic, acquired Current Visit: No Status: Chronic Code(s): D61.89 - OTH APLASTIC ANEMIAS AND OTHER BONE MARROW FAILURE SYNDROMES (4) 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 Current Visit: No Status: Chronic Code(s): D61.2 - APLASTIC ANEMIA DUE TO OTHER EXTERNAL AGENTS Comment: s/p 1 unit PRBC (5) Hepatosplenomegaly Current Visit: No Status: Chronic Code(s): R16.2 - HEPATOMEGALY WITH SPLENOMEGALY, NOT ELSEWHERE CLASSIFIED (6) Osteopetrosis Current Visit: Yes Status: Chronic Code(s): Q78.2 - OSTEOPETROSIS (7) Pancytopenia Current Visit: No Status: Chronic Code(s): D61.818 - OTHER PANCYTOPENIA (8) History of melena Current Visit: Yes Status: Acute Code(s): Z87.19 - PERSONAL HISTORY OF OTHER DISEASES OF THE DIGESTIVE SYSTEM - Plan 57YO gentleman w/ a PMH significant for osteopetrosis of the left jaw previously treated for osteomyelitis who presents with a CC of worsening left jaw pain and swelling since yesterday morning. Left jaw pain and swelling 2/2 suspected osteomyelitis vs. osteonecrosis of the left jaw - ESR and CRP both elevated on admission and CT negative for any abscess just osteopetrosis. - Will continue IV vanc and zosyn per recs of Dr. Allison BRYANT. - Will obtain and MRI of the left jaw to evaluate for osteo vs. necrosis. - Will continue PO tylenol and ibuprofen for pain control. - Dr. Allison BRYANT on board, appreciate recs. - Will continue to follow WBC w/ QD CBCs. - Will start on GI mechanical soft diet 2/2 jaw limitations. - Will continue IVFs with NS @ 150mL/hr overnight and reassess tomorrow for need to continue based on PO intake tonight. Osteopetrosis of left jaw - Aware, patient follows w/ Dr. Cooper regarding complications from this. - Will continue PO pain regimen as described above. Melena and abdominal pain - Will obtain an abdominal U/S and FOBT tolook for source of pain and confirm possible GI bleed. h/o gallbladder denocarcinoma s/p cholcystectomy, chemo, and radiation - Aware, patient is 3-4 weeks s/p chemotherapy. Follows w/ Dr. Altamirano. Chronic Pancytopenia - Aware, 2/2 osteopetrosis. - WBC, Hgb/Hct & platelets stable compared to previous labs. - Peripheral smear ordered. - Will continue to follow during hospital stay. FMR H&P: Upper Level - Pertinent findings Physical Exam: General: alert and oriented; in no apparent distress HEENT: left lower facial swelling; mild TTP; no erythema; pt only able to open jaw minimally. Abdomen: significant hepatosplenomagaly noted; TTP in RUQ Skin: ~ 5cm well circumscribed flat lesion; central-clearing. - Plan Date/Time: 02/17/181643 I, Nisha Beltran, have evaluated this patient and agree with findings/plan as outlined by architecture internship resident. Pertinent changes/additions are listed here. Chronic osteomyelitis of the jaw with acute worsening of facial swelling - will admit pt to medical inpatient - continue broad-spectrum antibiotics. - Dr. Cooper has been consulted, and his recommendations are appreciated. - Tylenol pain;Toradol for severe pain, or if pt is not able to tolerate pills. - will add MRI of face/jaw to evaluate for worsening of osteomyelitis or formation of abscess. Ostepetrosis - as above. Chronic pancytopenia - likely secondary to hepatosplenomegaly/extramedullary hematopoeisis from osteopetrosis - hgb, plt, wbc stable compared to prior labs. - peripheral smear pending. - will continue to monitor. Melena - will check FOBT to rule out UGI bleed - pt reports taking iron pills given to him by a friend from [place], may be related to this. History of gallbladder adenocarcinoma - moderately to poorly differentiated adenocarcinoma. - s/p cholecystectomy - currently seeing Dr. Altamirano. Attending Addendum - Attending Addendum Date/Time: 02/17/182125 I personally evaluated the patient and discussed the management with Dr. Beltran and team. I agree with and repeated the History, Examination, Assessment and Plan documented above with any addition or exceptions noted below.
[2018-02-17] MEDS ORDERED: Ibuprofen 600 MG TAB PO PRN (17:10)
[2018-02-17 17:30] VITALS: BMI 25.1
[2018-02-17] MEDS: Sodium Chloride 0.9% 1,000 ML IV SCH ×2 (17:39→23:23)
[2018-02-17] MEDS: Piperacillin/Tazobactam 3.375 GM in Sodium Chloride 0.9% 100 ML IVPB SCH (19:35)
[2018-02-17] MEDS: Ketorolac Tromethamine 30 MG/ML VIAL IVP PRN (19:36)
[2018-02-17] MEDS ORDERED: Piperacillin/Tazobactam 3.375 GM in Sodium Chloride 0.9% 100 ML IVPB SCH (20:00)
[2018-02-17] MEDS: Enoxaparin Sodium 40 MG/0.4 ML SYRINGE SC SCH (21:00)
[2018-02-18] MEDS: Sodium Chloride 0.9% 1,000 ML IV SCH (01:35)
[2018-02-18] MEDS: Piperacillin/Tazobactam 3.375 GM in Sodium Chloride 0.9% 100 ML IVPB SCH ×4 (01:38→20:30)
[2018-02-18] MEDS: Vancomycin HCl 1 GM in Premix Bag 1 BAG IVPB SCH ×2 (01:38→15:00)
--- NOTE | 2018-02-18 05:59 | PDOC.FM ---
- Subjective Subjective: NAEO. Patient states his pain is currently a 6/10 in severity. Says he did not eat last night but has ordered soft foods for breakfast that he will try to eat. Also endorses an itchy rash all over his body. Says sometimes it itches so much that it keeps him awake at night and would like something for it. Denies any fever/chills or N/V. - Objective MAR Reviewed: Yes Vital Signs & Weight: Vital Signs (12 hours) Temp Pulse Resp BP BP Pulse Ox 02/18/18 03:44 97.8 F 74 16 110/57 L 97 02/18/18 00:00 97.7 F 73 16 101/54 L 97 02/17/18 19:47 98 02/17/18 19:39 98.6 F 82 16 123/59 L 99 Weight Weight 68.447 kg Result Diagrams: 02/18/18 05:41 02/17/18 12:31 <Maggie Montanez - Last Filed: 02/18/18 11:43> - Objective Vital Signs & Weight: Vital Signs (12 hours) Temp Pulse Pulse Resp BP BP BP 02/18/18 11:58 97.2 F L 77 16 105/58 L 02/18/18 11:57 97.2 F L 77 16 105/58 L 02/18/18 09:00 97.6 F 77 16 109/57 L 02/18/18 08:00 97.6 F 77 16 109/57 L 02/18/18 03:44 97.8 F 74 16 110/57 L Pulse Ox 02/18/18 11:58 98 02/18/18 11:57 02/18/18 09:00 95 02/18/18 08:00 95 02/18/18 03:44 97 Weight Weight 68.447 kg I&O: 02/17/18 02/18/18 02/19/18 06:59 06:59 06:59 Intake Total 0 Balance 0 Result Diagrams: 02/18/18 05:41 02/17/18 12:31 <Kareem Chinchilla - Last Filed: 02/18/18 12:32> Phys Exam - Physical Examination Constitutional: NAD HEENT: moist MMs, sclera anicteric Neck: supple, full ROM Respiratory: no wheezing, no rales, no rhonchi, clear to auscultation bilateral Cardiovascular: RRR, no significant murmur Gastrointestinal: soft, no distention, positive bowel sounds Musculoskeletal: no edema Neurological: non-focal, normal sensation, moves all 4 limbs Psychiatric: normal affect, A&O x 3 Skin: normal turgor, cap refill <2 seconds Deviation from normal: dry, scaly flesh-colored rash across lower trunk <MontanezMaggie - Last Filed: 02/18/18 11:43> Dx/Plan (1) Osteomyelitis of mandible Code(s): M27.2 - INFLAMMATORY CONDITIONS OF JAWS Status: Suspected (2) Adenocarcinoma of gallbladder Code(s): C23 - MALIGNANT NEOPLASM OF GALLBLADDER Status: Acute (3) Anemia, aplastic, acquired Code(s): D61.89 - OTH APLASTIC ANEMIAS AND OTHER BONE MARROW FAILURE SYNDROMES Status: Chronic (4) 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 Code(s): D61.2 - APLASTIC ANEMIA DUE TO OTHER EXTERNAL AGENTS Status: Chronic (5) Hepatosplenomegaly Code(s): R16.2 - HEPATOMEGALY WITH SPLENOMEGALY, NOT ELSEWHERE CLASSIFIED Status: Chronic (6) Osteopetrosis Code(s): Q78.2 - OSTEOPETROSIS Status: Chronic (7) Pancytopenia Code(s): D61.818 - OTHER PANCYTOPENIA Status: Chronic (8) History of melena Code(s): Z87.19 - PERSONAL HISTORY OF OTHER DISEASES OF THE DIGESTIVE SYSTEM Status: Acute - Plan Plan: 57YO gentleman w/ a PMH significant for osteopetrosis of the left jaw who has been previously treated for osteomyelitis who presents with a CC of progressively worsening left jaw pain and swelling that began the morning of . Left jaw pain and swelling 2/2 suspected osteomyelitis vs. osteonecrosis of the left jaw - ESR and CRP both elevated on admission and CT negative for any abscess just osteopetrosis. - Will continue IV vanc and zosyn per recs of Dr. Allison BRYANT. Appreciate recs. - MRI of the left jaw pending. - Will continue IV ketorolac and PO ibuprofen PRN for pain control. - Will continue to follow WBC w/ QD CBCs. - Will continue on GI mechanical soft diet 2/2 jaw ROM limitations. - Will consider deescalating IVFs once patient is able to take PO. Osteopetrosis of left jaw - Aware, patient follows w/ Dr. Cooper regarding complications from this. - Will continue PO pain regimen as described above. Melena and abdominal pain - Will obtain an abdominal U/S and FOBT to look for source of pain and confirm possible GI bleed. - Endorses having had a colonoscopy 2-3 years ago and says they found a "cyst" that they removed. Does not remember them saying when he needed his next colonoscopy. Per chart review he had an EGD and colonoscopy in 2015 w/ 2 polyps removed and hemorrhoids and gastritis identified. - Of note, patient reports that he has been taking PO iron which is likely the cause of his "melena." However, given his FH & personal h/o polyps, will obtain an FOBT to r/o GI bleed. h/o gallbladder denocarcinoma s/p cholcystectomy, chemo, and radiation - Aware, patient is 3-4 weeks s/p chemotherapy. Follows w/ Dr. Altamirano. Chronic Pancytopenia 2/2 BM failure from osteopetrosis - Aware, 2/2 osteopetrosis. - WBC down to 2.4 this AM and Hgb down to 6.9. Platelets down to 46. - Will transfuse 1 unit of PRBCs this AM. - Peripheral smear pending. - Will continue to follow during hospital stay. Dispo: Awaiting recs from ID for further management. <Maggie Montanez - Last Filed: 02/18/18 11:43> Attending Addendum - Attending Addendum Date/Time: 02/18/18 1232 I personally evaluated the patient and discussed the management with Dr. Montanez. I agree with the History, Examination, Assessment and Plan documented above with any addition or exceptions noted below. <Kareem Chinchilla - Last Filed: 02/18/18 12:32>
[2018-02-18 06:38] LABS: Band 7 % (5-11); Basophilic Stippling SLIGHT = 1-2 cells (100X) (None Seen); Eosinophils 1 % (0-10); Hemoglobin 6.9 g/dL (14.0-18.0); Lymphocytes 25 % (21-51); MDiff Complete? YES; Mean Corpuscular HGB CONC 31.5 g/dL (32.0-36.0); Mean Corpuscular Hemoglobin 27.5 pg (27.0-31.0); Mean Corpuscular Volume 87.3 fL (78.0-98.0); Mean Platelet Volume 11.2 fL (7.4-10.4); Metamyelocyte 6 % (0-0); Monocytes 6 % (0-10); Myelocyte 4 % (0-0); Neutrophil 51 % (42-75); Nucleated RBC 15 % (0); PLT Morphology Comment Appears Decreased; Platelet Count 46 thou/uL (130-400); Polychromasia SLIGHT = 2-3 cells (100X) (0-2/hpf); RBC Distribution Width 19.7 % (11.5-14.5); Tear Drops MODERATE= 6-15 cells (100X) (0-1/hpf); White Blood Cell (WBC) Count 2.2 thou/uL (4.8-10.8)
[2018-02-18] MEDS ORDERED: Hydrocerin (Eucerin) Cream 120 gm Jar TOP PRN (09:24)
--- NOTE | 2018-02-18 09:30 | ULT ---
ULTRASOND ABDOMEN: HISTORY: Abdominal pain and bloating status post cholecystectomy for gallbladder adenocarcinoma. FINDINGS: The liver demonstrates a homogeneous echotexture without focal mass or intrahepatic ductal dilatation . The patient is post cholecystectomy. The common duct measures 7 mm in diameter. The spleen is en larged measuring 20 cm in length. There is a 1.3 cm cyst in the right kidney. No hydronephrosis is seen on either side. The visualized portions of the pancreas, aorta, and IVC are unremarkable. No f ree fluid is seen. IMPRESSION: 1. Splenomegaly. 2. Status post cholecystectomy. 3. Right renal cyst. POS: [facility]
[2018-02-18 12:31] LABS: Iron 54 ug/dL (65-175); Iron Binding Capacity, Total 171 mcg/dL (261-462)
[2018-02-18] MEDS: Ketorolac Tromethamine 30 MG/ML VIAL IVP PRN ×2 (13:52→20:32)
[2018-02-18] MEDS ORDERED: Fluconazole 100 MG TAB PO SCH (14:15)
--- NOTE | 2018-02-18 14:30 | CON ---
DATE OF CONSULTATION: 02/18/2018 REASON FOR CONSULTATION: Pain, left side of the face. HISTORY OF PRESENT ILLNESS: A 57-year-old patient who has a history of osteopetrosis whom we had darien ated in the recent past for chronic osteomyelitis of the mandible. 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 The patient has bee n treated with IV antimicrobial therapy. He does not seem to be a candidate for surgical interventio n. The patient persisted with fistulous drainage and pain and swelling of both sides of the mandibul ar regions and in 07/2017 we started him on IV Invanz and daptomycin, which he took for 6 months and then he was switched to oral Augmentin and minocycline for suppression. There was quite remarkable i mprovement in the amount of swelling and we switched him to suppressive Augmentin therapy, which he h ad been taking and then 2 days ago, he called my office complaining of pain in the left side of the f acial area. The patient also noticed more difficulty in opening his mouth because of pain in the lef t side. No swallowing difficulty. No visual changes. No headaches, no fever, chills, cough or sput um production or chest pain. No abdominal pain or diarrhea. No genitourinary symptoms. PAST MEDICAL HISTORY: Osteopetrosis, extramedullary erythropoiesis with pancytopenia, chronic osteom yelitis of the mandible, protracted treatment with IV Invanz and daptomycin this year with marked imp rovement in the facial swelling and mandibular swelling. ALLERGIES: None. CURRENT MEDICATION LIST: Enoxaparin, Zosyn and vancomycin. SOCIAL HISTORY: Noncontributory. PHYSICAL EXAMINATION: VITAL SIGNS: T-max 98.6. SKIN: Not remarkable. Maybe mild erythema left side of the face malar region. No lymphadenopathy. HEENT: Ocular movements are conjugate, he has some element of trismus. Somewhat pale conjunctivae. There is swelling right around the parotid gland left side with tenderness on palpation. The mandib le itself does not appear tender. NECK: Supple. No jugular vein distention. LUNGS: Symmetric. Clear breath sounds. HEART: S1, S2, regular rate. No S3 or S4. ABDOMEN: Soft, not distended or tender. There is hepatosplenomegaly noted, which is chronic. EXTREMITIES: No joint inflammatory activity outside the area of involvement. Moves extremities equa lly. LABORATORY DATA: White cell count of 4.2 and now 2.2, hemoglobin 8 and 6.9, MCV 87, platelets 60,000 with 37% neutrophils, 17% bands and now 51% neutrophils and 7% bands. Chemistry normal except for i jeana of 54 and TIBC 171 and ferritin of 1200. CRP 3.46. Microbiology, 2 sets of blood cultures thus far no growth. There is an abdomen ultrasound, which showed splenomegaly and abdomen and pelvis CT d one on 09/19/2017 with low density mass-like region in the gallbladder fossa, which resolved, splenom egaly, inguinal hernia, lymph nodes in inguinal area. Soft tissue neck CT, this was with contrast st udy. There is mild soft tissue swelling of the left face, 1.5 cm well circumscribed lipoma. No flui d collection. Small amount of edema within the left masseter muscle. Parotid glands and submandibul ar glands are unremarkable. ASSESSMENT: 1. Adult onset osteopetrosis, which improved markedly with treatment for chronic osteomyelitis of th e jaw with IV antimicrobials and then suppressive Augmentin and in remission until 2 days ago. 2. Swelling of the left side of the face close to the temporomandibular joint left side soft tissues , associated with some trismus. 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 The patient has an MRI of the orbit, face and neck has been ordered and still going to be read and according to results, then we will dev ise continuation of therapy maybe in the outpatient setting with another course of protracted antimic robial therapy intravenously.
--- NOTE | 2018-02-18 15:19 | MRI ---
MRI OF THE FACE WITH AND WITHOUT CONTRAST: DATE: 02/18/2018. HISTORY: Left jaw pain, history of osteomyelitis. TECHNIQUE: Multiplanar, multisequence MR imaging of the maxillofacial region obtained with and without contrast. FINDINGS: The osseous structures are of prominent decreased T1 and T2 signal consistent with extensive scleroti c changes seen on prior CT. The osseous structures are better assessed on recent CT examination performed 02/17/2018. This CT ex amination demonstrates extensive loss of cortical bone involving the inner and outer cortex of the ma ndible in the region of the angle bilaterally which has progressed since the 06/07/2014 examination. The masseter muscle on this examination is enlarged and edematous on the left. There is an oblong T2 hyperintense lymph node in the region of the posterior aspect of the parotid gland on the left poste riorly. On axial image 19 of the fat-saturated T2 weighted imaging, there is a 1.2 cm fluid collection which abuts the lateral cortex of the mandible and is within the enlarged masseter muscle and/or along the posterior margin of the enlarged masseter muscle suspicious for a small abscess on the left. There i s mild inflammatory edema within the retroantral fat on the left. There is also mild edema involving the lateral pterygoid muscle on the left. There is mild increased T2 signal intensity within the anterior and inferior aspect of the superficia l lobe of the left parotid gland, likely inflammatory/infectious in nature and, in addition, there is edematous change involving the skin and subcutaneous fat superficial to the left masseter muscle zion picious for cellulitis. There is T1 hypointense signal intensity in the region of cortical destruction involving the inner an d outer table of the angle of the mandible bilaterally. Post contrast imaging is provided. Of note, the angle of the mandible in the areas of cortical destr uction demonstrate enhancement of the inner and outer cortex, left greater than right. There is an a curtis within the central aspect of this peripheral enhancement which is T2 hypointense and nonenhancing . These areas of sclerotic on recent CT and are seen within the medullary space of the angle of the mandible bilaterally. Findings suggest devitalized bone. However, given the patient's densely sclerotic bones, this appearance may be consistent with the angie ent's history of osteopetrosis. Bony sequestrum is a possibility as well. IMPRESSION: 1. Abnormal increased T2 signal is seen within the masseter muscle on he left as well as the in ferior anterior aspect of the parotid gland and the adjacent subcutaneous fat and skin. Findings sug gest cellulitis and infectious myositis. 2. Small T2 hyperintense 1.2 cm collection along the dorsal aspect of the masseter muscle on th e left may represent a small abscess. 3. The mandible is abnormal bilaterally in the region of the angle where there is loss of cortic al bone involving the medial and outer cortex, left greater than right. There is enhancement of this and this is suspicious for mandibular osteomyelitis, left greater than right. The patient's underly ing history of osteopetrosis limits assessment of the medullary cavity of the angle of the mandible w here there is nonenhancing decreased T2 signal which could represent abnormality intrinsic to the pat ient's history of osteopetrosis. Underlying bony sequestrum on the basis of bilateral mandibular ost eomyelitis and devascularized bone is a possibility. CODE T POS: [facility]
[2018-02-18] MEDS: Enoxaparin Sodium 40 MG/0.4 ML SYRINGE SC SCH (20:31)
[2018-02-19] MEDS: Piperacillin/Tazobactam 3.375 GM in Sodium Chloride 0.9% 100 ML IVPB SCH ×4 (01:02→20:50)
[2018-02-19 01:22] LABS: Vancomycin, Trough 7.4 ug/mL
[2018-02-19 01:34] LABS: Anisocytosis SLIGHT = 6-15 cells (100X) (0-5/hpf); Band 15 % (5-11); Eosinophils 1 % (0-10); Hemoglobin 7.5 g/dL (14.0-18.0); Lymphocytes 27 % (21-51); MDiff Complete? YES; Mean Corpuscular HGB CONC 31.4 g/dL (32.0-36.0); Mean Corpuscular Hemoglobin 27.4 pg (27.0-31.0); Mean Corpuscular Volume 87.1 fL (78.0-98.0); Mean Platelet Volume 6.2 fL (7.4-10.4); Monocytes 3 % (0-10); Neutrophil 52 % (42-75); Nucleated RBC 12 % (0); Ovalocytes SLIGHT = 2-5 cells (100X) (0-1/hpf); PLT Morphology Comment Appears Decreased; Platelet Count 52 thou/uL (130-400); Polychromasia SLIGHT = 2-3 cells (100X) (0-2/hpf); RBC Distribution Width 19.1 % (11.5-14.5); Red Blood Cell (RBC) Count 2.73 mill/uL (4.70-6.10); Tear Drops MODERATE= 6-15 cells (100X) (0-1/hpf); White Blood Cell (WBC) Count 2.4 thou/uL (4.8-10.8)
[2018-02-19] MEDS: Vancomycin HCl 1 GM in Premix Bag 1 BAG IVPB SCH (02:00)
[2018-02-19] MEDS: Ketorolac Tromethamine 30 MG/ML VIAL IVP PRN ×4 (03:00→21:48)
[2018-02-19] MEDS ORDERED: Vancomycin HCl 1.5 GM in Sodium Chloride 0.9% 250 ML 300 ML IVPB SCH ×3 (03:00→14:00)
--- NOTE | 2018-02-19 06:04 | PDOC.FM ---
- Subjective Subjective: NAEO. Patient states he feels well this AM. Says his pain is only 5/10 right now and that it has improved compared to yesterday. Denies any N/V, fever/ chills or chest pain. - Objective MAR Reviewed: Yes Vital Signs & Weight: Vital Signs (12 hours) Temp Pulse Resp BP Pulse Ox 02/19/18 03:08 96.7 F L 75 16 112/58 L 99 02/18/18 20:00 98.3 F 78 16 108/55 L 97 02/18/18 19:06 95 Weight Weight 68.447 kg I&O: 02/17/18 02/18/18 02/19/18 06:59 06:59 06:59 Intake Total 1760 Balance 1760 Result Diagrams: 02/19/18 00:54 02/17/18 12:31 <Maggie Montanez - Last Filed: 02/19/18 09:00> - Objective Vital Signs & Weight: Vital Signs (12 hours) Temp Pulse Resp BP Pulse Ox 02/19/18 08:00 96 02/19/18 07:56 97.4 F L 76 16 102/56 L 96 Weight Weight 68.447 kg I&O: 02/18/18 02/19/18 02/20/18 06:59 06:59 06:59 Intake Total 1760 Balance 1760 Result Diagrams: 02/19/18 00:54 02/17/18 12:31 <Kareem Chinchilla - Last Filed: 02/19/18 16:02> Phys Exam - Physical Examination Constitutional: NAD HEENT: moist MMs, sclera anicteric decreased swelling in L face and jaw w/ less TTP as well compared to previous exams Neck: no nodes, supple, full ROM Respiratory: no wheezing, no rales, no rhonchi, clear to auscultation bilateral Cardiovascular: RRR, no significant murmur Gastrointestinal: soft, no distention, positive bowel sounds TTP in left side Neurological: non-focal, normal sensation, moves all 4 limbs Psychiatric: normal affect, A&O x 3 Skin: normal turgor, cap refill <2 seconds Deviation from normal: dry, scaly, pruritic rash on lower torso and back -: small ~1.5cm lipoma noted just anterior to left TMJ <Maggie Montanez - Last Filed: 02/19/18 09:00> Dx/Plan (1) Osteomyelitis of mandible Code(s): M27.2 - INFLAMMATORY CONDITIONS OF JAWS Status: Suspected (2) Adenocarcinoma of gallbladder Code(s): C23 - MALIGNANT NEOPLASM OF GALLBLADDER Status: Acute (3) Anemia, aplastic, acquired Code(s): D61.89 - OTH APLASTIC ANEMIAS AND OTHER BONE MARROW FAILURE SYNDROMES Status: Chronic (4) 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 Code(s): D61.2 - APLASTIC ANEMIA DUE TO OTHER EXTERNAL AGENTS Status: Chronic (5) Hepatosplenomegaly Code(s): R16.2 - HEPATOMEGALY WITH SPLENOMEGALY, NOT ELSEWHERE CLASSIFIED Status: Chronic (6) Osteopetrosis Code(s): Q78.2 - OSTEOPETROSIS Status: Chronic (7) Pancytopenia Code(s): D61.818 - OTHER PANCYTOPENIA Status: Chronic (8) History of melena Code(s): Z87.19 - PERSONAL HISTORY OF OTHER DISEASES OF THE DIGESTIVE SYSTEM Status: Acute (9) Tinea corporis Code(s): B35.4 - TINEA CORPORIS Status: Suspected - Plan Plan: 57YO gentleman w/ a PMH significant for osteopetrosis of the left jaw who has been previously treated for osteomyelitis who presents with a CC of progressively worsening left jaw pain and swelling that began the morning of . Left jaw pain and swelling 2/2 osteomyelitis w/ an associated abscess collection - ESR and CRP both elevated on admission and CT negative for any abscess just osteopetrosis. - Based on MRI which showed a small 1.2cm abscess and likely osteomyelitis, patient will need to continue jail antibiotics. - Will base discharge antibiotics on recs from Dr. Allison BRYANT. Appreciate recs. - Will continue IV ketorolac and PO ibuprofen PRN for pain control. - Will continue to follow WBC w/ QD CBCs. - Will continue on GI mechanical soft diet 2/2 jaw ROM limitations. - Stopped IVFs as PO intake was 1L yesterday & ate 100% of meals. Osteopetrosis of left jaw - Aware, patient follows w/ Dr. Cooper regarding complications from this. - Will continue PO pain regimen as described above. Melena and abdominal pain - Abdominal pain likely 2/2 HSM from extramedullary hematopoeisis from osteopetrosis. - U/S showed no acute findings and FOBT was negative. h/o gallbladder denocarcinoma s/p cholcystectomy, chemo, and radiation - Aware, patient is 3-4 weeks s/p chemotherapy. Follows w/ Dr. Altamirano. 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 - Hgb up to 7.5 this AM. Platelets and WBC also increased to 2.4 and 52. - Peripheral smear showed pancytopenia. - Will continue to follow during hospital stay. suspected tinea corporis - Started on PO diflucan and topical eucerin yesterday. - Will continue to monitor. Dispo: Awaiting recs from ID for further management. Likely discharge home today on new antibiotic regimen. <Maggie Montanez - Last Filed: 02/19/18 09:00> Attending Addendum - Attending Addendum Date/Time: 02/19/18 1602 I personally evaluated the patient and discussed the management with Dr. Montanez. I agree with the History, Examination, Assessment and Plan documented above with any addition or exceptions noted below. <Kareem Chinchilla - Last Filed: 02/19/18 16:02>
[2018-02-19] MEDS: Saccharomyces boulardii 250 MG CAP PO SCH (08:30)
[2018-02-19 19:26] VITALS: BP 126/64; TEMP 98.5
[2018-02-19] MEDS: Amoxicillin/Potassium Clav 875 MG TAB PO SCH (21:46)
[2018-02-19] MEDS: Enoxaparin Sodium 40 MG/0.4 ML SYRINGE SC SCH (21:49)
--- NOTE | 2018-02-20 06:03 | PDOC.FM ---
- Subjective Subjective: NAEO. Patient has no complaints this AM. Is sitting comfortably in bed in NAD. States jaw pain is 5/10 in severity currently and is still having difficulty opening his mouth all of the way. Otherwise, has no complaints and is ready to go home today. - Objective MAR Reviewed: Yes Vital Signs & Weight: Vital Signs (12 hours) Temp Pulse Resp BP Pulse Ox 02/19/18 20:00 99 02/19/18 19:18 98.5 F 77 20 126/64 99 Weight Weight 68.447 kg I&O: 02/18/18 02/19/18 02/20/18 06:59 06:59 06:59 Intake Total 1760 1500 Balance 1760 1500 Result Diagrams: 02/20/18 07:01 02/17/18 12:31 <Maggie Montanez - Last Filed: 02/20/18 11:21> - Objective Vital Signs & Weight: Vital Signs (12 hours) Pulse Ox 02/20/18 08:00 98 Weight Weight 68.447 kg I&O: 02/19/18 02/20/18 02/21/18 06:59 06:59 06:59 Intake Total 1760 1500 Balance 1760 1500 Result Diagrams: 02/20/18 07:01 02/17/18 12:31 <Kareem Chinchilla - Last Filed: 02/20/18 11:38> Phys Exam - Physical Examination Constitutional: NAD HEENT: moist MMs mild swelling in L face & jaw w/ assocaited trismus Neck: supple, full ROM Respiratory: no wheezing, no rales, no rhonchi, clear to auscultation bilateral Cardiovascular: RRR, no significant murmur Neurological: non-focal, normal sensation, moves all 4 limbs Psychiatric: normal affect, A&O x 3 Skin: normal turgor, cap refill <2 seconds <Maggie Montanez - Last Filed: 02/20/18 11:21> Dx/Plan (1) Osteomyelitis of mandible Code(s): M27.2 - INFLAMMATORY CONDITIONS OF JAWS Status: Suspected (2) Adenocarcinoma of gallbladder Code(s): C23 - MALIGNANT NEOPLASM OF GALLBLADDER Status: Acute (3) Anemia, aplastic, acquired Code(s): D61.89 - OTH APLASTIC ANEMIAS AND OTHER BONE MARROW FAILURE SYNDROMES Status: Chronic (4) 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 Code(s): D61.2 - APLASTIC ANEMIA DUE TO OTHER EXTERNAL AGENTS Status: Chronic (5) Hepatosplenomegaly Code(s): R16.2 - HEPATOMEGALY WITH SPLENOMEGALY, NOT ELSEWHERE CLASSIFIED Status: Chronic (6) Osteopetrosis Code(s): Q78.2 - OSTEOPETROSIS Status: Chronic (7) Pancytopenia Code(s): D61.818 - OTHER PANCYTOPENIA Status: Chronic (8) History of melena Code(s): Z87.19 - PERSONAL HISTORY OF OTHER DISEASES OF THE DIGESTIVE SYSTEM Status: Acute (9) Tinea corporis Code(s): B35.4 - TINEA CORPORIS Status: Suspected - Plan Plan: 57YO gentleman w/ a PMH significant for osteopetrosis of the left jaw who has been previously treated for osteomyelitis who presents with a CC of progressively worsening left jaw pain and swelling that began the morning of . Left jaw osteomyelitis w/ an associated abscess collection - ESR and CRP both elevated on admission and CT negative for any abscess just osteopetrosis. - Based on MRI which showed a small 1.2cm abscess and likely osteomyelitis, patient will need to continue retirement antibiotics. - Switched to PO Augmentin yesterday per recs of IDDr. Cooper. Appreciate recs. - Will continue IV ketorolac and PO ibuprofen PRN for pain control. - Will continue to follow WBC w/ QD CBCs. - Will continue on GI mechanical soft diet 2/2 jaw ROM limitations. Osteopetrosis - Aware, patient follows w/ Dr. Cooper regarding complications from this. - Will continue PO pain regimen as described above. 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 - Hgb stable at 7.2 this AM. Platelets and WBC also stable at 3.5 and 42. - Peripheral smear showed pancytopenia. - Will continue to follow during hospital stay & transfuse PRN. Suspected tinea corporis - Will continue topical eucerin. - Will continue to monitor. Melena and abdominal pain - Abdominal pain likely 2/2 HSM from extramedullary hematopoeisis from osteopetrosis. - U/S showed no acute findings and FOBT was negative. h/o gallbladder denocarcinoma s/p cholcystectomy, chemo, and radiation - Aware, patient is 3-4 weeks s/p chemotherapy. Follows w/ Dr. Altamirano. Dispo: Discharge home today on PO Augmentin until patient can follow-up with Dr. Cooper as an outpatient. <Maggie Montanez - Last Filed: 02/20/18 11:21> Attending Addendum - Attending Addendum Date/Time: 02/20/18 3874 I personally discussed the management with Dr. Montanez. Patient unavailable at time of rounds for exam. I agree with the History, Examination, Assessment and Plan documented above with any addition or exceptions noted below. We appreciate Dr Cooper' care. Patient is stable for discharge. <Kareem Chinchilla - Last Filed: 02/20/18 11:38>
[2018-02-20 07:11] LABS: Hemoglobin 7.2 g/dL (14.0-18.0); Mean Corpuscular HGB CONC 30.9 g/dL (32.0-36.0); Mean Corpuscular Hemoglobin 26.7 pg (27.0-31.0); Mean Corpuscular Volume 86.6 fL (78.0-98.0); Mean Platelet Volume 4.5 fL (7.4-10.4); Platelet Count 54 thou/uL (130-400); RBC Distribution Width 19.6 % (11.5-14.5); Red Blood Cell (RBC) Count 2.71 mill/uL (4.70-6.10); White Blood Cell (WBC) Count 3.2 thou/uL (4.8-10.8)
[2018-02-20 09:15] LABS: Band 13 % (5-11); Eosinophils 2 % (0-10); Lymphocytes 19 % (21-51); MDiff Complete? YES; Metamyelocyte 7 % (0-0); Monocytes 9 % (0-10); Myelocyte 8 % (0-0); Neutrophil 42 % (42-75); Nucleated RBC 6 % (0); Ovalocytes SLIGHT = 2-5 cells (100X) (0-1/hpf); PLT Morphology Comment Appears Decreased; Polychromasia MODERATE = 3-4 cells (100X) (0-2/hpf); Tear Drops MODERATE= 6-15 cells (100X) (0-1/hpf); Toxic Granulation SLIGHT
[2018-02-20] MEDS: Amoxicillin/Potassium Clav 875 MG TAB PO SCH (09:16)
[2018-02-20] MEDS: Saccharomyces boulardii 250 MG CAP PO SCH (09:16)
--- NOTE | 2018-02-21 15:12 | DIS-2 ---
DATE OF ADMISSION: 02/17/2018 DATE OF DISCHARGE: 02/20/2018 RESIDENT: Maggie Montanez MD ADMITTING ATTENDING: Santana Taylor MD DISCHARGE ATTENDING: Kareem Chinchilla MD CONSULTATIONS: Infectious Disease, Fer Cooper MD. PROCEDURES: 1. Soft tissue neck CT, which was significant for some soft tissue swelling of the left face with underlying fluid collection as well as a [id number] appearance of the mandible, likely secondary to an abnormality in bone metabolism such as osteopetrosis. 2. MRI of the orbit, face, neck/IC, which was significant for abnormal increased T2 signal in the masseter muscle as well as on the left inferior anterior aspect of the parotid gland suggestive of cellulitis and infectious myositis. A small T2 hyperintense 1.2-cm collection on the dorsal aspect of the masseter muscle, may represent a small abscess. 3. Mandible is abnormal bilaterally in the region of the angle where there is loss of cortical bone involving the medial and outer cortex, left greater than right. There is enhancement of this and this is suspicious for mandibular osteomyelitis, left greater than right. Underlying bony sequestrum on the basis of bilateral mandibular osteomyelitis and devascularized bone is a possibility. PRIMARY DIAGNOSIS: Osteomyelitis of the left jaw with an associated abscess collection. SECONDARY DIAGNOSES: 1. Osteopetrosis. 2. 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. 3. Hepatosplenomegaly secondary to aplastic anemia. 4. Suspected tinea corporis. 5. History of adenocarcinoma of the gallbladder, status post cholecystectomy. 6. Radiation and chemotherapy. DISCHARGE MEDICATIONS: 1. Augmentin 875/125 one tablet p.o. every 12 hours for 10 days. 2. Florastor 250 mg p.o. daily. DISCONTINUED MEDICATIONS: PENICILLIN V potassium 250 mg p.o. b.i.d. HOSPITAL COURSE: The patient is a 57-year-old gentleman with a past medical history significant for osteopetrosis with chronic or multiple cases of osteomyelitis of the jaw as well as a recent history of gallbladder adenocarcinoma status post cholecystectomy, chemotherapy, and radiation who presented to the Emergency Department with a chief complaint of acute onset of progressively worsening left jaw pain that started the morning prior to the date of presentation. On initial presentation to the Emergency Department, the patient's vitals were noted to be within normal limits, but he reported this pain to be 8/10 in severity in his left jaw. A soft tissue CT of the neck was obtained, which did not show any underlying fluid collection, but did confirm his already known diagnosis of osteopetrosis. Initial lab work was significant for pancytopenia, which, per chart review, was chronic and secondary to the patient's osteopetrosis. His BMP was within normal limits. However, his CRP was significantly elevated at 3.46 as well as his ESR, which was 113. The patient was given 1 gram of IV vancomycin, 3.375 grams of IV Zosyn, 6 mg of IV morphine, and 1 liter of normal saline in the Emergency Department. Afterwards, the patient was therefore admitted to the medical team for close observation overnight due to concern for possible recurrent or persistent osteomyelitis in his jaw. On the floor, his pain was managed with IV Toradol and p.o. ibuprofen overnight and was well controlled to the point that he was able to tolerate a soft diet the following day. An MRI of the jaw was also obtained the following day, which did show a 1.2 cm abscess collection on the left side of his face as well as hyperattenuation concerning for osteomyelitis and/or necrotic changes of the left jaw. Infectious Disease, Dr. Fer Cooper, was consulted to come and evaluate the patient and recommended that he remain on IV vancomycin until he could come and evaluate him and see what the MRI reading showed. The patient was therefore continued on IV vancomycin, and transitioned to p.o. Augmentin the day prior to discharge per recs from Dr. Cooper. The patient tolerated the p.o. antibiotics well and was therefore cleared to be discharged home on this regimen until he could follow up with Dr. Cooper on an outpatient basis. Regarding the patient's pancytopenia, his hemoglobin did drop to 6.9 on the second day of his hospitalization requiring 1 unit of packed red blood cells to be transfused. Fortunately, by the next morning, the patient's hemoglobin had risen to 7.5 and he was therefore deemed stable to be discharged home with close follow-up. DISPOSITION: Stable. DISCHARGE INSTRUCTIONS: 1. Location: Home. 2. Diet: Regular diet as tolerated. 3. Activity: As tolerated. 4. Followup: The patient was instructed to follow up with his primary care provider within 1 week of discharge. Instructed to schedule an appointment with Dr. Fer Cooper with Infectious Disease immediately upon discharge from the hospital. TEN
[2018-02-22] MEDS ORDERED: Ibuprofen 600 MG TAB PO PRN (18:30)
== END 2018-02-20 11:35 | disposition home or self-care (01) | DRG 157 ==
LOC: ERS 11:20 → ONC 16:21
PROVIDERS: ADMIT Family Medicine; ATTEND Family Medicine
PROC: 30233N1 Transfusion of Nonautologous Red Blood Cells into Peripheral Vein, Percutaneous Approach (ICD-10-PCS; principal; 2018-02-17)
DX: M27.2 Inflammatory conditions of jaws (principal); D61.89 Other specified aplastic anemias and other bone marrow failure syndromes; D61.2 Aplastic anemia due to other external agents; Q78.2 Osteopetrosis; L03.818 Cellulitis of other sites; M60.08 Infective myositis, other site; K11.3 Abscess of salivary gland; D61.818 Other pancytopenia; C23 Malignant neoplasm of gallbladder; R16.2 Hepatomegaly with splenomegaly, not elsewhere classified; B35.4 Tinea corporis; Z90.49 Acquired absence of other specified parts of digestive tract
CPT/HCPCS: 36415; 36430; 70491; 70543; 76700; 80053; 80202; 82274; 82728; 83540; 83550; 85025; 85060; 85610; 85652; 85730; 86140; 86850; 86900; 86901; 87040; 90471; 90686; 96361; 96365; 96367; 96375; G0008; J1650; J1885; J2270; J2543; J3370; J7050; P9016

== ENCOUNTER 2018-05-08 09:10 | Day surgery (SDC) | payer MEDICARE, MEDICAID ==
[2018-05-08] MEDS ORDERED: Sodium Chloride 0.9% 30 ML ONE (09:24)
[2018-05-08] MEDS ORDERED: Acetaminophen 500 MG TAB PO SCH (10:15)
[2018-05-08] MEDS ORDERED: diphenhydrAMINE 25 MG CAP PO SCH (10:15)
[2018-05-08 15:16] VITALS: BP 111/61; TEMP 98.8
== END 2018-05-08 15:17 | disposition home or self-care (01) ==
LOC: ONC/OP 09:10
PROVIDERS: ATTEND Internal Medicine Hematology & Oncology
PROC: 30233N1 Transfusion of Nonautologous Red Blood Cells into Peripheral Vein, Percutaneous Approach (ICD-10-PCS; principal; 2018-05-08)
DX: D64.9 Anemia, unspecified (principal); D69.6 Thrombocytopenia, unspecified; Z79.899 Other long term (current) drug therapy
CPT/HCPCS: 36430; 85014; 85018; 86850; 86900; 86901; P9016

== ENCOUNTER 2018-05-21 08:14 | Inpatient (IN) | payer MEDICARE, MEDICAID ==
[2018-05-21] MEDS ORDERED: Pantoprazole 40 MG VIAL ONE ×2 (09:01→10:10)
[2018-05-21] MEDS ORDERED: Ondansetron PF 4 MG/2 ML Vial ONE ×2 (09:01→10:22)
[2018-05-21] MEDS ORDERED: Dicyclomine 20 MG TAB ONE (09:01)
[2018-05-21 09:03] LABS: Hemoglobin 9.1 g/dL (14.0-18.0); Mean Corpuscular Hemoglobin 29.3 pg (27.0-31.0); Mean Corpuscular Volume 94.5 fL (78.0-98.0); Mean Platelet Volume 11.6 fL (7.4-10.4); Platelet Count 54 thou/uL (130-400); RBC Distribution Width 19.4 % (11.5-14.5); Red Blood Cell (RBC) Count 3.11 mill/uL (4.70-6.10); White Blood Cell (WBC) Count 5.8 thou/uL (4.8-10.8)
--- NOTE | 2018-05-21 09:19 | CT ---
CT ABDOMEN AND PELVIS WITH IV CONTRAST: History: Abdominal pain and vomiting. Comparison: 09-19-17 FINDINGS: There is atelectasis at the lung bases. Bones remain diffusely sclerotic. Liver is enlarged and splee n remains markedly enlarged. Distention of the splenic vein is similar in appearance to the prior fernando dy. The metallic clips associated with cholecystectomy on the prior study are no longer visible. Gallblad alfonzo remains absent. There is distention of the intrahepatic biliary system. Common duct measures up t o 1.0 cm. No hyperdense stones are evident within the biliary system. Small renal cysts are stable. Urinary bladder is decompressed. There is mass like thickening along th e left side of the urinary bladder measuring up to 1.5 cm. Fat protrudes into the left inguinal canal , unchanged in appearance. There is circumferential wall thickening involving the right colon with subtle stranding in the adjac ent fat. It extends to, but not beyond, the hepatic flexure. No evidence of bowel obstruction. IMPRESSION: 1. Inflammation of the right colon may be the cause of the patient's symptoms. Cause for the inflamma tion is not apparent. 2. Mass like thickening of the left urinary bladder wall. Please consider urologic evaluation. 3. New dilatation of the intrahepatic biliary system and common bile duct upper limits of normal in s ize without internal stone evident. Cholecystectomy clips are now absent suggesting interval surgery. Cause is not evident. Correlation with patient's recent biliary and surgical history is required. 4. Hepatosplenomegaly. Stable. 5. Diffuse osteosclerosis, stable. POS: [facility]
[2018-05-21 09:35] LABS: Band 31 % (5-11); Hypochromia SLIGHT = 6-15 cells (100X) (0-5/hpf); Lymphocytes 11 % (21-51); MDiff Complete? YES; Metamyelocyte 7 % (0-0); Monocytes 1 % (0-10); Myelocyte 8 % (0-0); Neutrophil 42 % (42-75); Nucleated RBC 13 % (0); Platelet Morphology Comment Appears Decreased; Polychromasia MODERATE = 3-4 cells (100X) (0-2/hpf); Tear Drops SLIGHT = 2-5 cells (100X) (0-1/hpf)
[2018-05-21 09:42] LABS: Bilirubin Moderate (Negative); Blood, Urine Negative (Negative); Clarity CLEAR (Clear); Glucose, Urine (Dipstick) Negative (Negative); Leukocyte Negative (Negative); Nitrite Negative (Negative); Protein, Urine (Dipstick) Negative (Neg-Trace); Urobilinogen 0.2 mg/dL (0.2-1.0); pH, Urine 7.5 (5.0-9.0)
[2018-05-21 09:46] LABS: Specific Gravity, Urine 1.058 (1.002-1.036)
[2018-05-21 09:51] LABS: ALT (SGPT) 193 U/L (8-55); AST (SGOT) 234 U/L (5-34); Albumin 3.6 g/dL (3.5-5.0); Alkaline Phosphatase 687 U/L (40-150); Anion Gap 16 mmol/L (10-20); BUN (Urea Nitrogen) 11 mg/dL (8.4-25.7); Bilirubin, Total 6.5 mg/dL (0.2-1.2); Calc. Creatinine Clearance 0 mL/min (70-130); Calcium 8.9 mg/dL (7.8-10.44); Carbon Dioxide 21 mmol/L (22-29); Chloride 103 mmol/L (98-107); Estimated GFR-MDRD Greater than 90; Globulin 3.5 g/dL (2.4-3.5); Glucose 131 mg/dL (70-105); Lipase Less than 4 U/L (8-78); Potassium 3.6 mmol/L (3.5-5.1); Protein, Total 7.1 g/dL (6.0-8.3); Sodium 136 mmol/L (136-145)
[2018-05-21] MEDS ORDERED: Fentanyl 100 MCG/2 ML VIAL ONE (10:10)
[2018-05-21 10:47] LABS: INR-International Normal Ratio 1.1; PTT 36.3 SEC (22.9-36.1)
[2018-05-21] MEDS ORDERED: Acetaminophen 650 MG Suppository PR PRN (11:17)
[2018-05-21] MEDS ORDERED: Ondansetron PF 4 MG/2 ML Vial IVP PRN (11:17)
[2018-05-21] MEDS ORDERED: Acetaminophen 325 MG TAB PO PRN (11:17)
[2018-05-21] MEDS ORDERED: Senokot S 8.6-50 MG TAB PO PRN (11:17)
[2018-05-21] MEDS ORDERED: ISOVUE-370 76%-LOCM 1 ML ONE (13:30)
[2018-05-21 13:59] VITALS: BMI 21.9
--- NOTE | 2018-05-21 14:09 | CON ---
DATE OF CONSULTATION: 05/21/2018 This is a 57-year-old male, who is being admitted with abdominal pain may have evidence of colitis. On his CAT scan, he had some thickening of the anterior bladder wall. Looking back at numerous CAT scans he has had over the last 2 to 3 years, he has had a little bit of thickening in this area, not as pronounced. His urinalysis is clear of blood. His creatinine is normal. It looks like he has renal cyst. He is anemic with hemoglobin 9.1. His medical history is positive for gallbladder carcinoma. I think he had surgery as well as chemotherapy for that, he sees Dr. Altamirano. He also had some type of chronic problem with his jaw. He has seen Infectious Disease for and looks like he has been admitted many times for that. The patient speaks only Maori currently as I really have nothing to add in terms of talking with him. I hope to be able to check on him tomorrow. He is being admitted as mentioned for this abdominal pain. He will need a cystoscopic exam at some point. This will probably be done as an outpatient. i will hopefully have a monument setter helper to help tommorow. Job ID: [id number] [facility]
[2018-05-21] MEDS ORDERED: Prevnar 13-Val Conj/PF 0.5 ML SYRINGE IM ONE (14:45)
[2018-05-21] MEDS: Sodium Chloride 0.9% 1,000 ML IV SCH (15:08)
[2018-05-21] MEDS: Piperacillin/Tazobactam 4.5 GM in Sodium Chloride 0.9% 100 ML IVPB SCH ×2 (15:09→23:49)
--- NOTE | 2018-05-21 15:12 | HP ---
PRIMARY CARE PROVIDER: None. CHIEF COMPLAINT: Abdominal pain. HISTORY OF PRESENT ILLNESS: Mr. Rivers is a pleasant 57-year-old Estonian-speaking gentleman, who was seen at [facility] on May 21, 2018. He reports that he was doing well until yesterday. He started having abdominal pain this morning. He describes it as pain across his upper abdomen, sharp, 10/10 at its worst, associated with nausea. He also vomited three times. He reports that his last bowel movement was last night. He denies any fevers or chills. He denies any difficulty urinating. REVIEW OF SYSTEMS: All other systems reviewed and found to be negative. PAST MEDICAL HISTORY: Jaw osteomyelitis, gallbladder adenocarcinoma, status post cholecystectomy, status post chemotherapy and status post radiation therapy. PAST SURGICAL HISTORY: Cholecystectomy, right leg surgery, and left jaw surgery. FAMILY HISTORY: Malignancy in his mother. SOCIAL HISTORY: The patient denies tobacco use, alcohol use, or recreational drug use. He does report having history of daily alcohol use, but quit drinking more than three years ago. ALLERGIES: NO KNOWN DRUG ALLERGIES. CURRENT MEDICATIONS: These need to be clarified, the patient appears to be taking Augmentin and metronidazole. PHYSICAL EXAMINATION: GENERAL: On examination, Mr. Rivers is awake and alert, not in acute distress. VITAL SIGNS: Blood pressure is 148/85, pulse 80, respiratory rate 16, and oxygen saturation 100% on room air. He is afebrile. EYES: Scleral icterus, no conjunctival pallor. ENT: Dry mucosal membranes, no oropharyngeal erythema or exudates. NECK: Supple, nontender, trachea is midline. RESPIRATORY: Accessory muscles of breathing are not active. Chest wall movements are symmetric bilaterally. Lungs are clear to auscultation without wheeze, rhonchi, or crepitations. CARDIOVASCULAR: S1 and S2 are heard, regular. Peripheral pulses palpable. No carotid bruit. No pericardial rub. ABDOMEN: Soft, epigastric and right upper quadrant tenderness, no guarding or rigidity, bowel sounds heard. The patient has hepatomegaly and splenomegaly. NEUROLOGIC: Cranial nerves 2 through 12 are intact, deep tendon reflexes 2+. MUSCULOSKELETAL: Power is 5/5 in all four extremities. SKIN: No rashes or subcutaneous nodules. LYMPHATIC: No cervical lymphadenopathy. PSYCHIATRIC: Normal mood, normal affect, the patient is oriented to person, place, and time. LABORATORY STUDIES: Mr. Rivers's labs and investigations were reviewed. He had CT scan of the abdomen and pelvis, showed inflammation of the right colon, masslike thickening of the left urinary bladder wall, and dilatation of the intrahepatic biliary system and common bile duct, upper limits of normal in size. He has normal white count, but bandemia with 31% bands, 42% neutrophils, elevated metamyelocytes at 7%, elevated myelocytes at 8%, teardrop cells, INR 1.1, normal sodium, normal potassium, low creatinine of 0.55, elevated total bilirubin of 6.5, it was 0.7 in January 2018, elevated AST of 234, it was 26 on February 17, 2018. Elevated ALT of 193, it was 17 in January 2018 and elevated alkaline phosphatase of 687, up from 121 in January 2018. Lipase is less than 4. Urinalysis is negative for nitrite and leukocyte esterase. ASSESSMENT AND PLAN: Mr. Rivers is a pleasant 57-year-old gentleman, who was seen at [facility] on May 21, 2018. His problem list includes: 1. Abdominal pain: Etiology unclear, could be related to intraabdominal infection or colitis. I should note that fecal occult blood test was positive. He will be admitted to the medical floor for further management. 2. Colitis: The patient will be admitted to the medical floor. Gastroenterology Service will be consulted for opinion and help with further management. 3. Intraabdominal infection: Suspected, given patient's symptoms and bandemia. We will start him on Zosyn. We will order blood cultures. We will follow serial labs. 4. Abnormal liver function tests: Could be secondary to cholangitis or choledocholithiasis. We will request GI service evaluation. 5. Urinary bladder mass: Suspected, based on CT scan of the abdomen and pelvis. Urology Service being consulted. Many thanks for allowing me to participate in your patient's care. Please feel free to contact me with any questions or concerns. LEVEL OF RISK: Moderate. LEVEL OF COMPLEXITY: Moderate. Job ID: [id number]
[2018-05-21] MEDS: Morphine 2 MG/ML SYRINGE SLOW IVP PRN (16:43)
--- NOTE | 2018-05-21 17:00 | ULT ---
ULTRASOUND ABDOMEN COMPLETE: 05/21/18 HISTORY: 57-year-old male with abnormal liver function tests. FINDINGS: Spleen: 22 x 11 x 9 cm. Liver: Echogenicity within normal limits. Intrahepatic biliary ductal dilation. Common duct: 9 mm. Bilateral kidneys: No hydronephrosis. 1.5 cm cyst at right renal mid-lower pole parenchyma. Pancreas: Poorly visualized parenchyma. Splenic vein dilated and tortuous. Gallbladder: Surgically absent. Abdominal aorta: Atherosclerotic irregularity. No aneurysm. Inferior vena cava: Unremarkable. IMPRESSION: 1. Diffuse dilation of the biliary tree is evidence for obstruction of the common duct. 2. It is noted that on the CT of 05/21/18, the common duct lumen is filled with material of inter mediate density, which could be sludge, noncalcified biliary calculi, or neoplasm. 3. Severe splenomegaly. 4. Dilated and tortuous splenic vein. ADELSO Fontenot POS: DEVANG
--- NOTE | 2018-05-21 18:18 | CON ---
DATE OF CONSULTATION: 05/21/2018 REASON FOR CONSULTATION: Abdominal pain and abnormal liver test. HISTORY: Mr. Rivers is a 57-year-old male, who presented to the ER last night after having a sudden onset of upper abdominal pain without radiation. Pain is described as sharp with 10/10 involving mostly in the upper abdomen. He did have some nausea and vomiting. He reports having some red specks in his emesis, but no camryn hematemesis or coffee-grounds emesis. He does relate having periodic melena over the last several months. His recent past history is significant for gallbladder adenocarcinoma diagnosed after having had a cholecystectomy. He was subsequently treated with chemo and radiation. Of note, he did have a negative intraoperative cholangiogram at the time of the surgery in August of 2016. Abdominal pelvic CT performed last night showed distention of the intrahepatic biliary system with common bile duct measuring up to 1 cm. There is also some mural thickening involving the right colon along with some adjacent fat stranding. Currently, he feels better. There is no longer nausea or vomiting. PAST MEDICAL HISTORY: 1. Gallbladder adenocarcinoma, status post cholecystectomy/chemo and radiation therapy in August 2016. 2. Jaw osteomyelitis. 3. Status post right leg surgery and left jaw surgery. ALLERGIES: NONE. SOCIAL HISTORY: The patient is by himself. He does not smoke. He stopped alcohol usage 3 years ago. REVIEW OF SYSTEMS: Ten-point review of system not reliably obtained, negative for any pertinent positives or negatives. PHYSICAL EXAMINATION: VITAL SIGNS: Temperature 97.5, blood pressure 122/81, and pulse of 77. GENERAL: He is alert, in no distress. HEENT: Shows bilateral icteric sclerae. Oropharynx clear. NECK: Supple. CV: Shows normal S1 and S2. Regular rate and rhythm. CHEST: Shows normal breath sounds. ABDOMEN: Soft, essentially nontender to palpation. No palpable mass or organomegaly. Good bowel sounds. No bruit. EXTREMITIES: Shows no edema. LABORATORY DATA: Electrolytes within normal range. Creatinine 0.55, bilirubin of 6.5, AST of 234, ALT 193, and alkaline phosphatase 687. IMAGING DATA: Abdominal ultrasound pending. Abdominal CT as above showed new biliary dilation, both intrahepatic and extrahepatic and a mural thickening involving the right colon. ASSESSMENT: 1. Elevation of bilirubin, liver enzymes, alkaline phosphatase in the setting of new finding of biliary dilation suggesting an obstructive process. Differential diagnosis includes choledocholithiasis, malignant process causing obstruction, or less likely biliary stricture from chemo and radiation. 2. History of gallbladder adenocarcinoma, status post cholecystectomy/chemo and radiation. RECOMMENDATIONS: We will proceed with ERCP tomorrow. Indication including risks, but not limited to, bleeding, perforation, and pancreatitis were discussed with the patient through a translating coleen. All questions answered. We will proceed. Job ID: [id number]
[2018-05-22] MEDS: Sodium Chloride 0.9% 1,000 ML IV SCH ×3 (02:48→15:45)
[2018-05-22] MEDS: Piperacillin/Tazobactam 4.5 GM in Sodium Chloride 0.9% 100 ML IVPB SCH ×2 (08:07→15:44)
[2018-05-22] MEDS ORDERED: Benzonatate 100 MG CAP PO PRN (08:13)
[2018-05-22 08:58] LABS: ALT (SGPT) 172 U/L (8-55); AST (SGOT) 149 U/L (5-34); Albumin 3.1 g/dL (3.5-5.0); Alkaline Phosphatase 649 U/L (40-150); Anion Gap 9 mmol/L (10-20); BUN (Urea Nitrogen) 11 mg/dL (8.4-25.7); Bilirubin, Direct 3.9 mg/dL (0.1-0.3); Bilirubin, Total 4.9 mg/dL (0.2-1.2); Calc. Creatinine Clearance 112 mL/min (70-130); Calcium 8.4 mg/dL (7.8-10.44); Carbon Dioxide 26 mmol/L (22-29); Chloride 106 mmol/L (98-107); Estimated GFR-MDRD Greater than 90; Glucose 83 mg/dL (70-105); Protein, Total 5.9 g/dL (6.0-8.3); Sodium 137 mmol/L (136-145)
[2018-05-22] MEDS ORDERED: Enoxaparin Sodium 40 MG/0.4 ML SYRINGE SC SCH (09:00)
[2018-05-22] MEDS ORDERED: Indomethacin 50 MG SUPP ONE (09:31)
[2018-05-22] MEDS ORDERED: Midazolam HCl 2 mg/2 ml Vial ONE (09:40)
[2018-05-22] MEDS ORDERED: Fentanyl 100 MCG/2 ML VIAL ONE (09:40)
[2018-05-22] MEDS ORDERED: Iothalamate Meglumine 60% 50 ML VIAL FS ONE (09:54)
[2018-05-22 12:39] LABS: Band 24 % (5-11); Hemoglobin 6.8 g/dL (14.0-18.0); Hypochromia SLIGHT = 6-15 cells (100X) (0-5/hpf); Lymphocytes 20 % (21-51); MDiff Complete? YES; Mean Corpuscular HGB CONC 29.6 g/dL (32.0-36.0); Mean Corpuscular Hemoglobin 27.7 pg (27.0-31.0); Mean Corpuscular Volume 93.5 fL (78.0-98.0); Mean Platelet Volume 11.1 fL (7.4-10.4); Metamyelocyte 3 % (0-0); Monocytes 1 % (0-10); Myelocyte 13 % (0-0); Neutrophil 39 % (42-75); Nucleated RBC 5 % (0); Ovalocytes SLIGHT = 2-5 cells (100X) (0-1/hpf); Platelet Count 48 thou/uL (130-400); Platelet Morphology Comment Appears Decreased; Polychromasia MODERATE = 3-4 cells (100X) (0-2/hpf); RBC Distribution Width 19.3 % (11.5-14.5); Red Blood Cell (RBC) Count 2.45 mill/uL (4.70-6.10); Tear Drops SLIGHT = 2-5 cells (100X) (0-1/hpf); White Blood Cell (WBC) Count 2.9 thou/uL (4.8-10.8)
[2018-05-22] MEDS ORDERED: Pantoprazole 40 MG VIAL IVP SCH (12:51)
--- NOTE | 2018-05-22 13:08 | RAD ---
ERCP: HISTORY: Biliary ductal dilatation noted on ultrasound: The possibility on the ultrasound of sludge or stones . FINDINGS: Series of 9 images presented for interpretation. On some of the initial images, there is a suggestio n there may be some filling defects in the distal common bile duct. On the final image, there is a s tent in place. IMPRESSION: Placement of a biliary stent. POS: TPC
[2018-05-22] MEDS: Pantoprazole 40 MG VIAL IVP SCH (13:27)
[2018-05-22 13:52] LABS: Hemoglobin 7.6 g/dL (14.0-18.0)
[2018-05-22 14:29] LABS: CEA, Serum 1.99 ng/mL (< or = 5.0)
[2018-05-22 14:42] LABS: HBCM Index 0.08 S/CO (0-0.79); HBSAg Index 0.18 S/CO (0-0.99); HIV (1/2) Antibody/Antigen Non-Reactive (NonReactive); HIV 1/2 INDEX 0.09 S/CO (<1.00); Hep A IgM AB Non-Reactive (NonReactive); Hep A IgM S/CO 0.17 S/CO (0-0.79); Hep B Surf Ag Non-Reactive S/CO (NonReactive); Hep C IgG Ab Non-Reactive (NonReactive); Hep C Index 0.17 S/CO (0-0.79); Hepatitis B Core IgM Abs Non-Reactive (NonReactive)
[2018-05-22] MEDS ORDERED: PROPOFOL 200 MG/20 ML VIAL ONE (15:48)
[2018-05-22] MEDS ORDERED: Dexamethasone 20 MG/5 ML VIAL ONE (15:48)
[2018-05-22] MEDS ORDERED: Rocuronium Bromide 10 MG/ML (10ML VIAL) ONE (15:48)
[2018-05-22] MEDS ORDERED: PHENYLEPHRINE-NS 100 MCG/ML 10 ML SYRINGE ONE (15:48)
[2018-05-22] MEDS ORDERED: Ondansetron PF 4 MG/2 ML Vial ONE (15:48)
--- NOTE | 2018-05-22 16:31 | OP ---
DATE OF PROCEDURE: 05/22/2018 PREPROCEDURE DIAGNOSES: 1. History of gallbladder cancer. 2. Admission with cholestatic liver function test and ductal dilatation, intrahepatic left greater than right and common bile duct on CAT scan. 3. Melena by history and anemia of iron deficiency. PROCEDURES PERFORMED: Endoscopic retrograde cholangiopancreatography with sphincterotomy and placement of common bile duct stent with biopsy of friable duodenal bulb mass and control of hemorrhage of the duodenal bulb mass, which was bleeding. ANESTHESIA: General endotracheal anesthesia. The patient is already on routine antibiotics, was given Indocin suppositories and IV fluids to help prevent pancreatitis. POSTPROCEDURE DIAGNOSES: 1. Dilated bile duct about 2 cm with no overt filling defects. 2. Stricture at the common hepatic duct with dilation of intrahepatic ducts above this, left greater than right. 3. Duodenal mass and deformed duodenal bulb and second and third portion of duodenum concerning for malignant ingrowth. Biopsies obtained. Also, we had to control bleeding in this area before biopsies with injection of 1:10,000 epinephrine. RECOMMENDATIONS: Check CEA and CA-19-9. Serial H and H's. Start IV Protonix q.12. Continue antibiotics. Consult Oncology. Obtain CEA and CA-19-9. DESCRIPTION OF PROCEDURE: The patient was informed of the risks, benefits, possible complications of endoscopy including perforation, reaction to medication, and aspiration, informed consent was obtained. The patient was brought to the endoscopy suite, where he was sedated in gradual fashion. Once he was comfortable, a bite block was placed into his oropharynx. The endoscope was advanced to the esophagus, stomach, and second and third portion of duodenum. On entering the side-viewing duodenal scope into the duodenum, there was blood and mass, friable mass present and we could really get our bearings. The scope was removed. Forward viewing scope was inserted and irrigated aggressively. There was a friable mass in the floor of the duodenal bulb. The depth was could not be ascertained. Clot was removed, but the base could still not be seen. The scope was able to be advanced easily to the apex of the bulb and into the second and third portions, which appeared clear. It seemed that we could identify the ampulla on this side. Forward viewing scope was removed, and the side-viewing scope was advanced back past the pylorus, apex of the bulb and into the second portion of duodenum, where the ampulla was brought into view. There was no drainage of contrast. Cannulation was obtained first with the wire of the pancreatic duct and then directly into the common bile duct. This was injected and showed a massively dilated common bile duct. There were concerns there could be a few small stones in the duct; however, there was a stricture that was quite tight in the common hepatic duct with dilatation of left and right ductal systems, left more than right. Wire was placed up into the intrahepatic ductal system on the left and sphincterotomy was performed. Over the guidewire, was placed; however, this was seem to be too long and was staying up on the right duct. It was removed and then we placed, repositioned the scope and the wire into the left system and placed in the left hepatic duct with good drainage of contrast endoscopically and radiographically. There was transient bleeding from the sphincterotomy site, which was controlled with injection of 1:10,000 epinephrine. Once this was done, we turned our attention to the deep necrotic mass in the floor of the duodenal bulb, and this was biopsied. There was some bleeding from this area, which was injected with 1:10,000 epinephrine, and we tried to remove some clot. The clot was not removed as there was no further bleeding. 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 The scope was then removed. The patient was brought to recovery room in stable condition. Job ID: [id number]
--- NOTE | 2018-05-22 17:20 | PDOC.PN ---
- Subjective Encounter Start Date: 05/22/18 Encounter Start Time: 17:18 Pt seen for followup re: duodenal mass. Says he feels well. - Objective Vital Signs & Weight: Vital Signs (12 hours) Temp Pulse Resp BP Pulse Ox 05/22/18 16:33 98.4 F 80 16 109/69 96 05/22/18 13:17 98.1 F 78 18 127/78 84 L 05/22/18 12:00 88 L 05/22/18 07:43 98.3 F 78 18 97/61 95 Weight Admit Weight 132 lb Weight 132 lb I&O: 05/21/18 05/22/18 05/23/18 06:59 06:59 06:59 Intake Total 500 Output Total 250 Balance 250 Result Diagrams: 05/22/18 13:24 05/22/18 07:37 Phys Exam - Physical Examination Constitutional: NAD HEENT: moist MMs, oral pharynx no lesions, 2+ tonsils icterus Neck: no nodes, no JVD, supple, full ROM Respiratory: clear to auscultation bilateral Cardiovascular: RRR, no rub S1, S2 Gastrointestinal: soft, non-tender, no distention, positive bowel sounds Neurological: moves all 4 limbs Psychiatric: normal affect Dx/Plan (1) Duodenal mass Code(s): K31.89 - OTHER DISEASES OF STOMACH AND DUODENUM Status: Acute Comment: s/p EGD, await path report, appreciate GI service input (2) Abnormal LFTs Code(s): R94.5 - ABNORMAL RESULTS OF LIVER FUNCTION STUDIES Status: Acute Comment: Improving (3) Mass of urinary bladder Code(s): N32.89 - OTHER SPECIFIED DISORDERS OF BLADDER Status: Acute Comment : appreciate urology service input (4) Hepatosplenomegaly Code(s): R16.2 - HEPATOMEGALY WITH SPLENOMEGALY, NOT ELSEWHERE CLASSIFIED Status: Chronic - Plan * . Review of Systems - Review of Systems Constitutional: negative: fever, chills, sweats, weakness, malaise Respiratory: negative: Cough, Shortness of Breath, SOB with Excertion, Pleuritic Pain, Wheezing Cardiovascular: negative: chest pain, palpitations, orthopnea, paroxysmal nocturnal dyspnea, edema, light headedness Gastrointestinal: negative: Nausea, Vomiting, Abdominal Pain, Diarrhea, Constipation, Melena, Hematochezia Genitourinary: negative: Dysuria, Frequency, Incontinence, Hematuria, Retention Skin: negative: Rash, Lesions, Perico, Bruising - Medications/Allergies Allergies/Adverse Reactions: Allergies Allergy/AdvReac Type Severity Reaction Status Date / Time No Known Allergies Allergy Verified 10/25/15 19:37 Medications: Current Medications Acetaminophen (Tylenol) 650 mg PO Q4H PRN PRN Reason: Headache/Fever/Mild Pain (1-3) Acetaminophen (Tylenol) 650 mg LA Q4H PRN PRN Reason: Headache/Fever/Mild Pain (1-3) Benzonatate (Tessalon) 100 mg PO TIDPRN PRN PRN Reason: Cough Sodium Chloride (Normal Saline 0.9%) 1,000 mls @ 70 mls/hr IV .[id number] [facility] Last Admin: 05/22/18 15:45 Dose: Not Given Piperacillin Sod/Tazobactam (Sod 4.5 gm/ Sodium Chloride) 100 mls @ 200 mls/hr IVPB 0800,1600,2359 [facility] Last Admin: 05/22/18 15:44 Dose: 100 mls Morphine Sulfate (Morphine) 2 mg SLOW IVP Q6H PRN PRN Reason: Pain Last Admin: 05/21/18 16:43 Dose: 2 mg Ondansetron HCl (Zofran) 4 mg IVP Q6H PRN PRN Reason: Nausea/Vomiting Pantoprazole Sodium (Protonix) 40 mg IVP 0100,1300 [facility] Last Admin: 05/22/18 13:27 Dose: 40 mg Senna/Docusate Sodium (Senokot S) 2 tab PO BID PRN PRN Reason: Constipation Sodium Chloride (Flush - Normal Saline) 10 ml IVF Q12HR [facility] Last Admin: 05/22/18 08:12 Dose: 10 ml Sodium Chloride (Flush - Normal Saline) 10 ml IVF PRN PRN PRN Reason: Saline Flush Sodium Chloride (Flush - Normal Saline) 10 ml IV 0100,1300 [facility] Last Admin: 05/22/18 13:29 Dose: 10 ml
[2018-05-22] MEDS: metroNIDAZOLE 500 MG TAB PO SCH (20:19)
[2018-05-22 21:06] LABS: Hemoglobin 7.6 g/dL (14.0-18.0)
[2018-05-23] MEDS: Piperacillin/Tazobactam 4.5 GM in Sodium Chloride 0.9% 100 ML IVPB SCH ×3 (00:02→15:24)
[2018-05-23] MEDS: Pantoprazole 40 MG VIAL IVP SCH ×2 (00:03→13:52)
[2018-05-23] MEDS: Sodium Chloride 0.9% 1,000 ML IV SCH ×4 (00:08→21:28)
[2018-05-23] MEDS: metroNIDAZOLE 500 MG TAB PO SCH ×3 (08:51→21:27)
[2018-05-23 08:58] LABS: Hemoglobin 7.4 g/dL (14.0-18.0)
--- NOTE | 2018-05-23 14:53 | PRG ---
DATE OF SERVICE: 05/23/2018 This patient, I saw 2 days ago in the ER; however, there was no stator winder immediately present, I had other cases to do so I could only review his chart. I asked the problem that I was asked to see him for yesterday. He had an EEG when I was there, so he had just recovered and could not answer any questions there. I was able to discuss his urologic history with him with aid of a stator winder, one of the nurses on the 4th floor here. He was admitted with abdominal pain, was found to have abnormal liver enzymes and underwent an EGD yesterday that may well showed recurrent adenocarcinoma of the gallbladder fossa region. I was asked to see him because of an abnormality on his CAT scan when he came in 2 days ago, which showed a potential mass on the anterior bladder wall. On talking to him, he has never had gross hematuria. He has some typical lower urinary tract symptoms for somebody his age, he gets up at night to urinate. He has some intermittency of his stream, but no gross hematuria, no dysuria, no urinary tract infections, no incontinence of urine, no significant problems with urgency unless he really puts off going. He does not smoke currently, but has smoked in the past, does not drink currently. I discussed with him the fact that the CAT scan showed a lesion on the bladder that may require evaluation with a cystoscopic exam. I indicated that we would wait until the results of the biopsies done yesterday came back and until the oncology team had been able to see him. I was able to talk to Dr. Newberry late this morning about him and he had read through his notes. He was not familiar with him, but he was seeing him today as he is on-call and apparently, this patient had been doing relatively well after treatment at their office, so this may be some new findings for them at ERCP yesterday. In any event, we are not planning on looking into his bladder currently. We are going to let Oncology evaluate him to see what the biopsy showed and then make a decision as to whether or not we need to do a cystoscopic exam. I am off this weekend, there is a urologist on-call who can be reached through the emergency room or the answering service should a urologist be needed over the weekend. Job ID: [id number]
--- NOTE | 2018-05-23 17:16 | PRG ---
DATE OF SERVICE: 05/23/2018 SUBJECTIVE: Mr. Rivers notes that he has had minimal epigastric discomfort. He has had no fever or chills. He has had two stools, which have been black. He denies any nausea or vomiting. He is tolerating a diet. PRESENT MEDICATIONS: 1. Tylenol. 2. Tessalon. 3. Flagyl. 4. Morphine. 5. Zofran. 6. Protonix. 7. Zosyn. 8. Normal saline at 70 mL an hour. OBJECTIVE: VITAL SIGNS: Temperature is 97, pulse 80, blood pressure is 115/70. He has been afebrile. LUNGS: Clear. HEART: Regular rate and rhythm without clicks or murmurs ABDOMEN: Soft and nontender. There is no rebound. There is no guarding. LABORATORY DATA: Hemoglobin was 7.6 yesterday after ERCP, it was 7.6 last night, and it was 7.4 this morning. Chemistries; bilirubin is down to 4.5, AST and ALT are down to 142 and 172, alkaline phosphatase is still elevated at 649. CA 19-9 was 39. CEA was 1.99. ASSESSMENT: 1. History of gallbladder cancer, now with a stricture in the common hepatic duct. This has been stented. Possibly some stones in the distal bile duct. There was also an irregular deep ulcer at the base of the duodenal bulb. Biopsies were nonrevealing. I am concerned about necrotic tumor in this area. 2. History of CT scan showing thickened bladder wall. 3. Melena. RECOMMENDATIONS: 1. IV Protonix q.12 hours. 2. Hemoglobin and hematocrit serially and a CBC in the morning with liver function tests and lipase in the morning. Continue antibiotics. We will continue to follow along with you. Job ID: [id number]
--- NOTE | 2018-05-23 18:09 | PRG ---
DATE OF SERVICE: 05/23/2018 SUBJECTIVE: The patient denies any new complaints. No nausea, vomiting, diarrhea, or constipation reported. He has mild epigastric discomfort. His diet was advanced to regular this afternoon. No fever or chills reported. REVIEW OF SYSTEMS: No chest pain or shortness of breath, focal neurologic deficit, or fever or chills reported. PHYSICAL EXAMINATION: VITAL SIGNS: Temperature 97.8, respirations of 16, pulse rate of 80, and blood pressure 115/70, O2 saturation 98% on room air. GENERAL: A 57-year-old male, in no apparent distress. HEENT: Head atraumatic, normocephalic. Sclerae anicteric. Moist mucous membranes. No oral lesion. NECK: Supple. No JVD appreciated. No carotid bruit. LUNGS: Clear to auscultation bilaterally. No wheezing, rales, or rhonchi. HEART: S1, S2 present. Regular rate and rhythm. No murmur, rubs, or gallops. ABDOMEN: Soft, mild epigastric tenderness. No rebound or guarding noted. EXTREMITIES: No edema or calf tenderness. LABORATORY FINDINGS: WBC on admission 5.8. H and H this morning was 7.4/23.9 from 9.1. BUN 11, creatinine 0.61. Total bilirubin 4.9 from 6.5, AST 149, ALT 172, alkaline phosphorus 649. Hepatitis profile was negative. Blood culture negative. Urine culture negative. Stool for occult blood was positive. Abdominal ultrasound on admission showed diffuse dilatation of the biliary tree along with severe splenomegaly and dilated and tortuous splenic vein. CT scan of the abdomen and pelvis showed inflammation of the right colon along with mass in the urinary bladder and dilatation of the intrahepatic biliary system. IMPRESSION: 1. Obstructive jaundice due to stricture at the common hepatic duct with dilatation of the intrahepatic duct. 2. Melena/gastrointestinal bleeding with acute blood loss anemia due to duodenal ulcer/polyp. 3. Suspected bladder mass. The patient was advised to follow up with Dr. Praveen Le as an outpatient for cystoscopy. 4. History of gallbladder adenocarcinoma, status post cholecystectomy with chemotherapy and radiation. 5. Chronic thrombocytopenia secondary to hypersplenism. 6. History of chronic alcoholism. He quit drinking 3 years ago. PLAN: Continue monitoring on the medical floor. We will recheck labs in a.m. Continue empiric antibiotics for suspected cholangitis. Continue IV PPIs. Continue IV fluids. Discontinue p.r.n. Tylenol. Regular diet. Urology followup as outpatient. 1 unit PRBC transfusion per GI. Job ID: [id number] TEN
[2018-05-23] MEDS: Morphine 2 MG/ML SYRINGE SLOW IVP PRN (21:28)
[2018-05-24] MEDS: Pantoprazole 40 MG VIAL IVP SCH ×2 (00:17→13:05)
[2018-05-24] MEDS: Piperacillin/Tazobactam 4.5 GM in Sodium Chloride 0.9% 100 ML IVPB SCH ×3 (00:17→15:49)
[2018-05-24 06:01] LABS: ALT (SGPT) 105 U/L (8-55); AST (SGOT) 51 U/L (5-34); Albumin 3.1 g/dL (3.5-5.0); Alkaline Phosphatase 475 U/L (40-150); Anion Gap 11 mmol/L (10-20); BUN (Urea Nitrogen) 7 mg/dL (8.4-25.7); Bilirubin, Direct 1.2 mg/dL (0.1-0.3); Bilirubin, Total 1.8 mg/dL (0.2-1.2); Calc. Creatinine Clearance 114 mL/min (70-130); Calcium 7.8 mg/dL (7.8-10.44); Carbon Dioxide 25 mmol/L (22-29); Chloride 107 mmol/L (98-107); Estimated GFR-MDRD Greater than 90; Glucose 91 mg/dL (70-105); Lipase Less than 4 U/L (8-78); Magnesium 1.9 mg/dL (1.6-2.6); Potassium 3.5 mmol/L (3.5-5.1); Protein, Total 6.1 g/dL (6.0-8.3); Sodium 139 mmol/L (136-145)
[2018-05-24 06:50] LABS: Anisocytosis MODERATE=16-30 cells (100X) (0-5/hpf); Band 18 % (5-11); Hemoglobin 8.3 g/dL (14.0-18.0); Lymphocytes 16 % (21-51); MDiff Complete? YES; Mean Corpuscular HGB CONC 31.7 g/dL (32.0-36.0); Mean Corpuscular Hemoglobin 29.9 pg (27.0-31.0); Mean Corpuscular Volume 94.5 fL (78.0-98.0); Mean Platelet Volume 10.7 fL (7.4-10.4); Metamyelocyte 3 % (0-0); Monocytes 2 % (0-10); Myelocyte 9 % (0-0); Neutrophil 52 % (42-75); Nucleated RBC 8 % (0); Platelet Count 50 thou/uL (130-400); Platelet Morphology Comment Appears Decreased; Polychromasia SLIGHT = 2-3 cells (100X) (0-2/hpf); RBC Distribution Width 19.2 % (11.5-14.5); Red Blood Cell (RBC) Count 2.77 mill/uL (4.70-6.10); Tear Drops SLIGHT = 2-5 cells (100X) (0-1/hpf); White Blood Cell (WBC) Count 5.3 thou/uL (4.8-10.8)
[2018-05-24] MEDS: Saccharomyces boulardii 250 MG CAP PO SCH (08:55)
[2018-05-24] MEDS: metroNIDAZOLE 500 MG TAB PO SCH ×3 (08:55→22:04)
[2018-05-24] MEDS: Sodium Chloride 0.9% 1,000 ML IV SCH (13:07)
--- NOTE | 2018-05-24 14:19 | PRG ---
DATE OF SERVICE: 05/24/2018 SUBJECTIVE: Mr. Rivers feels like he is not having any pain. He is tolerating diet. Nurses stated that he had two bowel movements overnight. He states per the family that he had four small bowel movements overnight. Apparently, these were dark. MEDICATIONS: 1. Flagyl. 2. Zofran. 3. Protonix. 4. Zosyn. 5. IV fluids. 6. Normal saline at 70 an hour. PHYSICAL EXAMINATION: GENERAL: The patient is resting comfortably in bed, sitting on the side of the bed with multiple family members. VITAL SIGNS: He has been afebrile. T-max is 98.1, pulse 74, blood pressure 112/72. LUNGS: Clear. HEART: Regular rate and rhythm. ABDOMEN: Soft, nontender, slightly protuberant. LABORATORY DATA: Hemoglobin yesterday was 7.4. He received 1 unit of blood yesterday and today hemoglobin is 8.3. Chemistries notable for BUN of 7 and creatinine of 0.6. The bilirubin is down to 1.8. AST, and ALT are 51 and 105, alkaline phosphatase is down to 475. ASSESSMENT: 1. Obstructive jaundice with biliary stricture, likely related to history of gallbladder malignancy, whether that is recurrence or whether that is rather some radiation stricturing, that is unclear. 2. Ulcer in the duodenal bulb, this looked necrotic and features concerning for malignancy, but the possibility of previous radiation is not completely ruled out. Biopsies are nondiagnostic. 3. Gastrointestinal bleeding was likely related to the ulcer and possibly some component of hemobilia. His hemoglobin has been stable and his BUN is down. He has likely stopped bleeding. He responded to 1 unit of blood appropriately. PLAN: 1. CBC in the morning. 2. Continue PPIs. 3. Continue antibiotics. Repeat EGD to re-evaluate duodenal ulcer and rebiopsy Saturday. Job ID: [id number]
--- NOTE | 2018-05-24 15:25 | PDOC.PN ---
- Subjective Encounter Start Date: 05/24/18 Encounter Start Time: 12:00 Patient seen and examined for jaundice/GIB. Mild epigastric discomfort. No melena. No new complaints. No overnight events - Objective MAR Reviewed: Yes Vital Signs & Weight: Vital Signs (12 hours) Temp Pulse Resp BP Pulse Ox 05/24/18 08:00 95 05/24/18 07:33 98.1 F 74 16 112/72 95 05/24/18 05:31 98.7 F 71 18 111/67 96 Weight Admit Weight 132 lb Weight 132 lb Most Recent Monitor Data Heart Rate from ECG 81 I&O: 05/23/18 05/24/18 05/25/18 06:59 06:59 06:59 Intake Total 4400 1938 Output Total 650 800 Balance 3750 1138 Result Diagrams: 05/24/18 05:12 05/24/18 05:12 Phys Exam - Physical Examination Constitutional: NAD Respiratory: no wheezing, no rhonchi Cardiovascular: RRR, no rub Gastrointestinal: soft, positive bowel sounds mild tenderness over the epigastric area Musculoskeletal: no edema Neurological: moves all 4 limbs Dx/Plan - Plan DVT proph w/SCDs IMPRESSION: 1. Abn LFTs/Obstructive jaundice due to stricture at the common hepatic duct with dilatation of the intrahepatic duct. 2. Melena/gastrointestinal bleeding with acute blood loss anemia due to duodenal ulcer/polyp. 3. Suspected bladder mass. The patient was advised to follow up with Dr. Praveen Le as an outpatient for cystoscopy. 4. History of gallbladder adenocarcinoma, status post cholecystectomy with chemotherapy and radiation. 5. Chronic thrombocytopenia secondary to hypersplenism. 6. History of chronic alcoholism. He quit drinking 3 years ago. PLAN: H/H stable AM labs GI following LFTs improving Review of Systems - Review of Systems Respiratory: negative: Cough, Dry, Shortness of Breath, Hemoptysis, SOB with Excertion, Pleuritic Pain, Sputum, Wheezing Cardiovascular: negative: chest pain, palpitations, orthopnea, paroxysmal nocturnal dyspnea, edema, light headedness, other Gastrointestinal: negative: Nausea, Vomiting, Abdominal Pain, Diarrhea, Constipation, Melena, Hematochezia, Other - Medications/Allergies Allergies/Adverse Reactions: Allergies Allergy/AdvReac Type Severity Reaction Status Date / Time No Known Allergies Allergy Verified 10/25/15 19:37 Medications: Current Medications Benzonatate (Tessalon) 100 mg PO TIDPRN PRN PRN Reason: Cough Sodium Chloride (Normal Saline 0.9%) 1,000 mls @ 70 mls/hr IV .[id number] [facility] Last Admin: 05/24/18 13:07 Dose: 1,000 mls Piperacillin Sod/Tazobactam (Sod 4.5 gm/ Sodium Chloride) 100 mls @ 200 mls/hr IVPB 0800,1600,2359 [facility] Last Admin: 05/24/18 08:54 Dose: 100 mls Metronidazole (Flagyl) 500 mg PO TID [facility] Last Admin: 05/24/18 08:55 Dose: 500 mg Morphine Sulfate (Morphine) 2 mg SLOW IVP Q6H PRN PRN Reason: Pain Last Admin: 05/23/18 21:28 Dose: 2 mg Ondansetron HCl (Zofran) 4 mg IVP Q6H PRN PRN Reason: Nausea/Vomiting Pantoprazole Sodium (Protonix) 40 mg IVP 0100,1300 [facility] Last Admin: 05/24/18 13:05 Dose: 40 mg Saccharomyces Boulardii (Florastor) 250 mg PO DAILY [facility] Last Admin: 05/24/18 08:55 Dose: 250 mg Senna/Docusate Sodium (Senokot S) 2 tab PO BID PRN PRN Reason: Constipation Last Admin: 05/24/18 08:56 Dose: 2 tab Sodium Chloride (Flush - Normal Saline) 10 ml IVF Q12HR [facility] Last Admin: 05/24/18 08:56 Dose: Not Given Sodium Chloride (Flush - Normal Saline) 10 ml IVF PRN PRN PRN Reason: Saline Flush Sodium Chloride (Flush - Normal Saline) 10 ml IV 0100,1300 [facility] Last Admin: 05/24/18 13:11 Dose: 10 ml
[2018-05-24] MEDS: Morphine 2 MG/ML SYRINGE SLOW IVP PRN (22:07)
[2018-05-25] MEDS: Pantoprazole 40 MG VIAL IVP SCH ×2 (00:39→13:06)
[2018-05-25] MEDS: Piperacillin/Tazobactam 4.5 GM in Sodium Chloride 0.9% 100 ML IVPB SCH ×3 (00:40→15:28)
[2018-05-25] MEDS: Sodium Chloride 0.9% 1,000 ML IV SCH ×3 (00:58→22:30)
[2018-05-25 07:45] LABS: Hemoglobin 8.1 g/dL (14.0-18.0)
[2018-05-25 08:09] LABS: ALT (SGPT) 78 U/L (8-55); AST (SGOT) 41 U/L (5-34); Albumin 3.1 g/dL (3.5-5.0); Alkaline Phosphatase 391 U/L (40-150); Bilirubin, Direct 1.1 mg/dL (0.1-0.3); Bilirubin, Total 1.7 mg/dL (0.2-1.2)
[2018-05-25] MEDS: metroNIDAZOLE 500 MG TAB PO SCH ×3 (08:36→22:30)
[2018-05-25] MEDS: Saccharomyces boulardii 250 MG CAP PO SCH (08:36)
[2018-05-25 12:12] LABS: Hemoglobin 8.8 g/dL (14.0-18.0)
--- NOTE | 2018-05-25 17:54 | PRG ---
DATE OF SERVICE: 05/25/2018 SUBJECTIVE: Mr. Rivers notes a little bit of epigastric pain, but not bad. He has had no vomiting. He is eating. He has had some stools still which are black. MEDICATIONS: He remains on: 1. Flagyl. 2. Protonix 40 IV q.12. 3. Zosyn. 4. Florastor. 5. Normal saline 70. OBJECTIVE: VITAL SIGNS: Temperature 98, pulse 74, blood pressure 113/72. LUNGS: Clear. HEART: Regular rate and rhythm without clicks or murmurs. ABDOMEN: Soft. There is mild protuberance in the epigastrium. There is no rebound or tenderness. LABORATORY DATA: Hemoglobin is 8.8 today. He last received a transfusion of 1 unit on the . Bilirubin down to 1.7. AST and ALT down to 41 and 78 and alkaline phosphatase 391. ASSESSMENT: 1. Biliary obstruction. He may have had a few small stones in the distal bile duct, but it seems predominantly he has had a stricture in the common hepatic duct which could be from previous radiation or could be recurrent malignancy of late related to his previous history of gallbladder cancer. It was not overly tight stricture and the stent was used to replace it. His liver function tests come down nicely since that time. 2. He had ulcer in the floor of the bulb of the duodenum, which with the clot and some deformity, it was hard to fully visualize. Biopsies were taken and were nondiagnostic. 3. With regard to the ulcer and bleeding, his hemoglobins have been stable, he has been on IV PPI. 4. There have been no overt signs of cholangitis, although he was started on empiric antibiotics when he came in, I think these can be finished up after tomorrow. PLAN: We will continue IV PPIs. We will go ahead and proceed with EGD tomorrow to evaluate the ulcer again and try to repeat biopsy in the duodenum to rule out any recurrence of malignancy. I explained this to the patient. He understands and wished to proceed. He will be n.p.o. after midnight. Job ID: [id number]
--- NOTE | 2018-05-25 20:29 | PDOC.PN ---
- Subjective Encounter Start Date: 05/25/18 Encounter Start Time: 08:15 Patient seen and examined for GI bleeding/Abd LFTs. No N/V. No new complaints. No overnight events - Objective MAR Reviewed: Yes Vital Signs & Weight: Vital Signs (12 hours) Temp Pulse Resp BP BP Pulse Ox 05/25/18 16:00 98.5 F 74 20 113/72 98 05/25/18 12:00 97.9 F 74 19 102/65 98 Weight Admit Weight 132 lb Weight 132 lb Most Recent Monitor Data Heart Rate from ECG 81 I&O: 05/24/18 05/25/18 05/26/18 06:59 06:59 06:59 Intake Total 8167 994 7885 Output Total 800 1853 900 Balance 1138 -1233 1120 Result Diagrams: 05/25/18 11:57 05/24/18 05:12 Additional Labs: Accuchecks 05/25/18 05/25/18 05/25/18 16:11 12:03 05:57 POC Glucose 119 H 105 95 05/24/18 20:37 POC Glucose 114 H Phys Exam - Physical Examination Constitutional: NAD Respiratory: no wheezing, no rhonchi Cardiovascular: RRR, no rub Gastrointestinal: soft, positive bowel sounds Musculoskeletal: no edema Neurological: moves all 4 limbs Dx/Plan - Plan DVT proph w/SCDs IMPRESSION: 1. Abn LFTs/Obstructive jaundice due to stricture at the common hepatic duct with dilatation of the intrahepatic duct. 2. Melena/gastrointestinal bleeding with acute blood loss anemia due to duodenal ulcer/polyp. 3. Suspected bladder mass - follow up with Dr. Praveen Le as an outpatient 4. History of gallbladder adenocarcinoma, status post cholecystectomy with chemotherapy and radiation. 5. Chronic thrombocytopenia secondary to hypersplenism. 6. History of chronic alcoholism. He quit drinking 3 years ago. PLAN: Repeat EGD in AM Cont PPI Cont current meds as below AM labs Review of Systems - Review of Systems Respiratory: negative: Cough, Dry, Shortness of Breath, Hemoptysis, SOB with Excertion, Pleuritic Pain, Sputum, Wheezing Cardiovascular: negative: chest pain, palpitations, orthopnea, paroxysmal nocturnal dyspnea, edema, light headedness, other - Medications/Allergies Allergies/Adverse Reactions: Allergies Allergy/AdvReac Type Severity Reaction Status Date / Time No Known Allergies Allergy Verified 10/25/15 19:37 Medications: Current Medications Benzonatate (Tessalon) 100 mg PO TIDPRN PRN PRN Reason: Cough Sodium Chloride (Normal Saline 0.9%) 1,000 mls @ 70 mls/hr IV .[id number] [facility] Last Admin: 05/25/18 05:32 Dose: 1,000 mls Piperacillin Sod/Tazobactam (Sod 4.5 gm/ Sodium Chloride) 100 mls @ 200 mls/hr IVPB 0800,1600,2359 [facility] Last Admin: 05/25/18 15:28 Dose: 100 mls Metronidazole (Flagyl) 500 mg PO TID [facility] Last Admin: 05/25/18 15:25 Dose: 500 mg Morphine Sulfate (Morphine) 2 mg SLOW IVP Q6H PRN PRN Reason: Pain Last Admin: 05/24/18 22:07 Dose: 2 mg Ondansetron HCl (Zofran) 4 mg IVP Q6H PRN PRN Reason: Nausea/Vomiting Pantoprazole Sodium (Protonix) 40 mg IVP 0100,1300 [facility] Last Admin: 05/25/18 13:06 Dose: 40 mg Saccharomyces Boulardii (Florastor) 250 mg PO DAILY [facility] Last Admin: 05/25/18 08:36 Dose: 250 mg Senna/Docusate Sodium (Senokot S) 2 tab PO BID PRN PRN Reason: Constipation Last Admin: 05/24/18 08:56 Dose: 2 tab Sodium Chloride (Flush - Normal Saline) 10 ml IVF Q12HR [facility] Last Admin: 05/25/18 08:36 Dose: Not Given Sodium Chloride (Flush - Normal Saline) 10 ml IV 0100,1300 [facility] Last Admin: 05/25/18 13:07 Dose: 10 ml Sodium Chloride (Flush - Normal Saline) 10 ml IVF PRN PRN PRN Reason: Saline Flush
[2018-05-25] MEDS: Morphine 2 MG/ML SYRINGE SLOW IVP PRN (22:31)
[2018-05-26] MEDS: Piperacillin/Tazobactam 4.5 GM in Sodium Chloride 0.9% 100 ML IVPB SCH ×3 (00:55→15:12)
[2018-05-26] MEDS: Pantoprazole 40 MG VIAL IVP SCH ×2 (00:57→13:13)
[2018-05-26 06:36] LABS: ALT (SGPT) 66 U/L (8-55); AST (SGOT) 46 U/L (5-34); Alkaline Phosphatase 350 U/L (40-150); Anion Gap 10 mmol/L (10-20); BUN (Urea Nitrogen) 8 mg/dL (8.4-25.7); Bilirubin, Total 1.8 mg/dL (0.2-1.2); Calc. Creatinine Clearance 118 mL/min (70-130); Calcium 8.4 mg/dL (7.8-10.44); Carbon Dioxide 25 mmol/L (22-29); Chloride 106 mmol/L (98-107); Estimated GFR-MDRD Greater than 90; Glucose 86 mg/dL (70-105); Potassium 3.7 mmol/L (3.5-5.1); Sodium 137 mmol/L (136-145)
[2018-05-26 07:51] LABS: Band 14 % (5-11); Eosinophils 4 % (0-10); Hemoglobin 7.9 g/dL (14.0-18.0); Lymphocytes 22 % (21-51); MDiff Complete? YES; Mean Corpuscular HGB CONC 32.1 g/dL (32.0-36.0); Mean Corpuscular Hemoglobin 30.6 pg (27.0-31.0); Mean Corpuscular Volume 95.4 fL (78.0-98.0); Mean Platelet Volume 7.5 fL (7.4-10.4); Metamyelocyte 6 % (0-0); Monocytes 7 % (0-10); Myelocyte 7 % (0-0); Neutrophil 40 % (42-75); Nucleated RBC 14 % (0); Platelet Count 43 thou/uL (130-400); Platelet Morphology Comment Appears Decreased; Polychromasia MARKED = >4 cells (100X) (0-2/hpf); RBC Distribution Width 19.4 % (11.5-14.5); Red Blood Cell (RBC) Count 2.57 mill/uL (4.70-6.10); Tear Drops MODERATE= 6-15 cells (100X) (0-1/hpf); White Blood Cell (WBC) Count 4.2 thou/uL (4.8-10.8)
[2018-05-26] MEDS: Saccharomyces boulardii 250 MG CAP PO SCH (08:42)
[2018-05-26] MEDS: metroNIDAZOLE 500 MG TAB PO SCH ×3 (08:42→22:37)
[2018-05-26] MEDS ORDERED: Ondansetron PF 4 MG/2 ML Vial ONE (11:19)
--- NOTE | 2018-05-26 13:43 | CON ---
DATE OF CONSULTATION: 05/26/2018 REASON FOR CONSULTATION: Osteopetrosis with infection and now biliary tract complications. 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 The patient also had biliary tract malignancy, which was managed with cholecystectomy in the recent past. He had been on chronic suppressive antimicrobial therapy after IV treatment for osteopetrosis with marked improvement in the inflammatory changes and pain in the mandibular region and control of these symptoms over the past many months. This time, he developed new onset of epigastric pain associated with nausea and vomiting without any diarrhea or fever. CT of the abdomen showed inflammatory changes of right colon, thickening of the left urinary bladder wall, dilatation of intrahepatic biliary system including CBD. He had normal white cell count with bandemia 31%, but I think this is a chronic finding related to the patient's osteopetrosis. He had ERCP. No malignancy was found, but the patient had sphincterotomy and placement of common bile duct stent with biopsy of friable duodenal bulb mass for control of hemorrhage. The path report indicated benign hyperplastic polyp. Currently, Mr. Rivers is feeling better. His pain has resolved. He has no headaches. Very minor pain in the left side of his mandible. No sore throat, odynophagia, dysphagia. No respiratory symptoms, except for mild cough. No sputum production. No genitourinary symptoms. No diarrhea. No neurological symptoms. PAST MEDICAL HISTORY: Includes osteopetrosis with jaw osteomyelitis, chronic. Gallbladder adenocarcinoma, status post cholecystectomy, chemo and radiation therapy. FAMILY HISTORY: Noncontributory. SOCIAL HISTORY: Never smoker. Lives in the area. Used to drink, but stopped 3 years ago. ALLERGIES: NONE. HOSPITAL MEDICATIONS: Flagyl. Zofran. Zosyn. PHYSICAL EXAMINATION: VITAL SIGNS: The patient has been afebrile in the hospital stay. Other vital signs are normal. SKIN EXAM: Not remarkable. HEENT: No lymphadenopathy. Ocular movements conjugate. The mandibular area is much less swollen than previously noted, less tender. Oral cavity is not remarkable, except for numerous missing teeth. NECK: Supple. No jugular vein distention. LUNGS: Symmetric. Clear breath sounds. CARDIOVASCULAR: S1, S2. Regular rate. No S3 or S4. ABDOMEN: Soft without tenderness. No organomegaly. No bladder distention. EXTREMITIES: Moves extremities equally. NEUROVASCULAR: Cognitive function appears to be intact. LABORATORY DATA: White cell count 4.2, hemoglobin 7.9, platelets 43,000 with 40% neutrophils, 14% bands, 7% monocytes. INR 1.1. Chemistry with a creatinine 0.58, bilirubin 1.7, AST 41, ALT 78, alkaline phosphatase 391, albumin 3.1. Urinalysis with moderate bilirubin. Previous direct bilirubin on May 08 was 3.1 and total bilirubin max at 4.9, May 22, 2018, and previous transaminases elevation max 05/21/2018 with improvement since, and alkaline phosphatase peaked at 687 at the end of April of this year. Microbiology, negative. ASSESSMENT: 1. 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 2. Biliary tract complications including gallbladder cancer, which was somewhat serendipitous finding after cholecystectomy in August 2016. There is a moderately to poorly differentiated adenocarcinoma. 3. Evidence of stricture at the common hepatic duct with dilation of intrahepatic ducts above the stricture, left greater than right, status post stent placement. This has led to improvement of laboratory and clinical findings. DISCUSSION: The patient will continue with Augmentin for management of his chronic osteomyelitis of the jaw associated with osteopetrosis and now there is this issue of this gallbladder cancer recurrence possibility. From my standpoint after discharge planning, I can switch back to his oral Augmentin for chronic suppression of the osteopetrosis associated osteomyelitis. Job ID: [id number]
--- NOTE | 2018-05-26 14:22 | OP ---
DATE OF PROCEDURE: 05/26/2018 PREPROCEDURE DIAGNOSES: 1. Duodenal mass noted on endoscopic retrograde cholangiopancreatography last week. Biopsies inconclusive. 2. History of gallbladder cancer. 3. Personal history of bilirubin obstruction last week, status post plastic stenting with improvement of LFTs. 4. History of gallbladder cancer, previously resected, treated with radiation and chemotherapy, did not have further surgeries as the patient has history of osteopetrosis and surgeon here talked to hepatic surgeon in [place] and hepatic surgeon in [place] felt at that time he would not be a candidate for any further liver resection because of the extramedullary hematopoiesis. POSTPROCEDURE DIAGNOSES: 1. Normal esophagus. 2. Normal stomach. 3. Duodenum, notable for friable necrotic mass in the bulb of the duodenum involving mainly the anterior wall and floor of the duodenal bulb. In the region, where the anterior wall would be, there is a deep ulcer with necrosis in the base. I am concerned this could be contained perforation. His previous CAT scan last week showed no evidence of free air or perforation. After injecting with epinephrine 1:10,000 of 4 mL to slow the oozing and vigorous irrigation. We were able to get multiple biopsies of this region and sent to Pathology. There was slight narrowing at the transition from the bulb to the second portion of the duodenum, which was easily traversed. The stents noted to be protruding from the ampulla. There is no evidence of ampullary disease. PLAN: 1. Await biopsies. 2. Re-CAT scan. 3. Consult Oncology. 4. Consult Surgery. 5. I talked with Dr. Altamirano, his oncologist, who told me he also has an osteopetrosis, of which he has been transfusion dependent for and he gave me one of the oncologic surgeons they work with at [facility], Dr. Thierry Turner and I have reached out to him to see if they can be any surgical sales representative in this case. Waiting for response. ANESTHESIA: TIVA. DESCRIPTION OF PROCEDURE: The patient was informed of the risks, benefits, and possible complications of endoscopy including perforation, reaction to medication, and aspiration, informed consent was obtained. The patient was brought to the Endoscopy Suite, where he a sedated in gradual fashion. Once he was comfortable, a bite block was placed inside his orifice. The endoscope was advanced through the esophagus, stomach, and second portion of the duodenum. The stomach and esophagus were normal. The duodenal bulb was again notable for necrotic mass at the base and anterior wall of the duodenum with raised margins. There was some necrotic debris here. There was some clot here. There was some slight oozing. The anterior wall of the duodenum was very deformed with a deep ulceration with necrotic material concerning for possible contained perforation. I do not think there was a free perforation well and he had no perforation seen on CAT scan last week. After 1:10,000 epinephrine was used to inject the area to decrease the oozing that was present, we went ahead and got multiple biopsies. The scope was then removed. The patient tolerated the procedure well. There were no complications. Further admission for bleeding was not undertaken as there was diffuse area of necrotic tissue. It may be amenable some form of argon treatment, however, without active bleeding and only transfusion requirement once every 4 days, we are going to hold off and get imaging and surgical opinion to see if he is a surgical candidate. Job ID: [id number]
[2018-05-26] MEDS ORDERED: Prevnar 13-Val Conj/PF 0.5 ML SYRINGE IM ONE (15:00)
--- NOTE | 2018-05-26 15:07 | CT ---
ABDOMEN CT SCAN WITH IV CONTRAST: Date: 05/26/18 HISTORY: History of gallbladder cancer, duodenal mass, questionable contained perforation. COMPARISON: 05/21/18 CT and 05/22/18 ERCP. FINDINGS: Minimal bilateral posterior pleural thickening and minimal pleural based parenchymal changes, probabl y some subsegmental atelectasis. Marked splenomegaly. The previously noted ductal dilatation seen on the prior study has been reduced following placement of an internal stent. There appears to be a smal l, approximately 1.3 x 1.9 cm diameter outpouching of the proximal duodenum just distal to the duoden al bulb. This outpouching projects to the right and does have some gas within it. It is definitely sm aller in size and less prominent than on the prior study. This could conceivably represent a duodenal diverticulum or, if there is clinical concern, a confined perforation of the duodenum could have a s imilar appearance. There is some minimal soft tissue thickening around the biliary stent in the upper -mid portion of the common bile duct consistent with a cholangiocarcinoma. There is some minimal thic kening of the antrum of the stomach and duodenal bulb, nonspecific, possibly some associated inflamma tion. There is a small amount of free fluid in the colonic gutters. Again noted is some wall thickeni ng of the right colon. There is no oral contrast within the lumen, so some of this may be related to just underdistention, but there is a suggestion of some mild pericolonic fat stranding and this appea thomas actually appears worse than on the 05/21/18 study. There appears to be more intraperitoneal flu id within the colonic gutter regions. There is also minimal thickening of the mucosa of the duodenum, nonspecific. No renal hydronephrosis. IMPRESSION: 1. Decompression of the previously noted dilated intrahepatic ducts after placement of indwelling st ent. 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 2. Small focal outpouching of minimal gas and contrast from the proximal duodenum just past the duod enal bulb which could represent either that of a duodenal diverticulum or possibly a small, confined perforation, but is actually smaller than on the prior study of 05/21/18. 3. Slightly more scattered free intraperitoneal fluid within the colonic gutters. 4. Abnormal wall thickening of the right colon, which is progressive from the prior study, with mini mal pericolonic fat stranding, raising the concern for right colon infection/inflammation/colitis. 5. No renal calculus or obstruction. 6. Stable splenomegaly. 7. Stable minimal bibasilar pulmonary and pleural chronic-appearing changes. 8. Extensive stable osteosclerosis. POS: [facility]
[2018-05-26] MEDS ORDERED: Lidocaine 1% PF 5 ML VIAL ONE (15:16)
[2018-05-26] MEDS ORDERED: PROPOFOL 200 MG/20 ML VIAL ONE (15:16)
--- NOTE | 2018-05-26 16:46 | HP ---
HISTORY OF PRESENT ILLNESS: Kareem Rivers is a 57-year-old male patient with osteoporosis, history of mandibular problems, hepatosplenomegaly requiring monthly transfusions with Dr. Darryl Altamirano. I saw the patient for cholecystitis in August of 2016, where he underwent laparoscopic video cholecystectomy and cholangiograms, they were normal. That operation was difficult and he had bleeding in the liver bed leading to a liter of blood bleeding required transfusion, monitoring in the intensive care unit, difficult hemostasis. The patient's gallbladder came out in a fragmented fashion. 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 Margins could not be assessed. Due to the fragment in nature, it was felt he had at least disease. There is no radiological evidence of metastatic disease at that time. Hepatitis studies have been negative. CEA level is normal at 1.99, this hospitalization on 05/22/2018, and CA-19-9 on 11/22/2016 was 2, today is 38, slightly elevated. The patient complained of upper abdominal pain, had a bilirubin of 6, had a CAT scan of the abdomen and pelvis noting intrahepatic ductal dilatation in this hospitalization. He was seen by Dr. Borges on 05/22/2018. He had ERCP sphincterotomy and stent placement. Biopsies were obtained and the sweep of the duodenum, where large ulceration was noted revealed hyperplastic inflammatory changes. No malignant cells were seen. The patient did have a large ulceration irregularity of the first portion of the duodenum. The patient's bilirubin decreased from 6.5 to 1.8. He was taken back for repeat endoscopy today and more biopsies performed. At the time of his cholecystectomy in 2016, the patient once discovered to have gallbladder adenocarcinoma noting history of osteopetrosis, frequent transfusion requirements, chronic thrombocytopenia, hepatomegaly, and splenomegaly. Discussion with hepatobiliary surgeon, Dr. Finesse Justin in [place] was undertaken. I discussed the case with him and with the patient's diagnosis of osteoporosis, the patient was felt not to be a candidate for any hepatic surgery. The patient thus was referred locally and underwent chemo radiation therapy to the liver bed. He is followed by Dr. Altamirano. He was discussed in tumor conference. On this admission, Dr. Borges has ordered more defined CAT scan of the liver, duodenum area with thin slices to better evaluate this for tumor recurrence as noted above. His CA-19-9 is slightly elevated relative to 2017. Considering the large ulceration, I have been asked to see him. The patient's abdominal pain and tenderness have resolved since resolution of his biliary obstruction. It is uncertain whether his biliary obstruction is malignant or cicatricial. ALLERGIES: NONE. TOBACCO: None. ALCOHOL: None. MEDICATIONS: At home; metronidazole and Augmentin. PAST SURGICAL HISTORY: 2017 laparoscopic cholecystectomy, negative cholangiograms, jaw surgery related to osteopetrosis. PAST MEDICAL HISTORY: Thrombocytopenia, chronic anemia, frequent transfusions related to osteopetrosis, hepatosplenomegaly related to osteopetrosis, gallbladder cancer, status post radiation chemotherapy, considered to be not an operative candidate for further resection of the liver bed due to his osteopetrosis as noted above. I have discussed with Dr. Finesse Justin, hepatobiliary surgeon in [place]. The patient's weight has been stable. The patient was noted to have a left inguinal hernias that bothers him for many years. He desires repair of this. He is also one in [place] 6 or 7 years ago. PHYSICAL EXAMINATION: VITAL SIGNS: Height 5 feet 5 inches, 132 pounds, 22 BMI. Temperature 97.9, 80, 111/73. HEAD, EARS, EYES, NOSE, AND THROAT: Unremarkable. LUNGS: Clear to auscultation. CARDIAC: Regular rate and rhythm without murmur or gallop. ABDOMEN: Soft and nontender. No guarding whatsoever. EXTREMITIES: Unremarkable. The patient has placed his umbilicus is without herniation. Right groin without evident hernia. Left groin reveals on inguinal hernia on Valsalva reduces easily. EXTREMITIES: Unremarkable. LABORATORIES: As noted above. ASSESSMENT AND PLAN: 1. Gallbladder cancer, considered to be a nonoperative candidate due to osteopetrosis. Hepatic infiltrative process makes surgery prohibitive. His pain has been relieved as well as his jaundice by biliary stenting. I have used the central sterilization technician phone to discuss these issues with the patient. Explained past events to refresh his memory as well as current recommendations. I would not recommend any surgical intervention at this time. He has abnormalities of duodenal sweep and repeat biopsies are pending. There is a possibility that he could have a malignancy. His CA-19-9 is slightly abnormal and elevated relative to the 2017 values. We will await further biopsies performed today. Continue PPIs. 2. Hepatosplenomegaly. 3. Splenomegaly and hepatomegaly and thrombocytopenia with chronic pancytopenia and frequent transfusions related to osteopetrosis. 4. Left inguinal hernia repair. This could be undertaken in the future as this is bothersome to him; however, we should postpone this until resolving of current issues. 5. I have explained to the patient using the central sterilization technician phone. He will need to follow up with Gastroenterology to follow him for his biliary stent. Currently, no surgical intervention is recommended at this time. Job ID: [id number]
[2018-05-26] MEDS ORDERED: ISOVUE-370 76%-LOCM 1 ML ONE (17:00)
[2018-05-26] MEDS ORDERED: Iopamidol 370 76% 50 ML VIAL FS ONE (17:00)
--- NOTE | 2018-05-26 20:10 | CON ---
DATE OF CONSULTATION: REASON FOR CONSULT: Gallbladder cancer. HISTORY OF PRESENT ILLNESS: Mr. Rivers is a pleasant 57-year-old male with a complicated medical history. He has a long history of osteopetrosis with associated musculoskeletal disability and pancytopenia. He also has hepatosplenomegaly. He is transfusion dependent and had a transfusion on May 08. He had a cholecystectomy in 2016 and was found to have adenocarcinoma of the gallbladder. He underwent treatment with Xeloda and radiation. He has been followed by Dr. Altamirano every 3 months. Last week, he began to have diffuse abdominal pain and presented to the emergency room for evaluation. It was associated with nausea and vomiting. He underwent a CT scan, showed biliary dilation. He did have elevation of his bilirubin and liver enzymes. He underwent an ERCP. CT scan also showed a duodenal mass. This was biopsied by Dr. Borges, but was nondiagnostic. He underwent an EGD early this morning with re-biopsy of his duodenal mass, there was area of serration and necrosis, path is currently pending. PAST MEDICAL HISTORY: 1. Gallbladder adenocarcinoma, diagnosed in August 2016. 2. Osteoporosis with hepatosplenomegaly and pancytopenia. 3. Transfusion dependency secondary to above. PAST SURGICAL HISTORY: 1. Cholecystectomy for cholecystitis in 2017. 2. Fractured leg repair. ALLERGIES: NO KNOWN DRUG ALLERGIES. HOME MEDICATIONS: 1. Augmentin 875 mg/125 daily. 2. Tylenol No. 3 p.r.n. FAMILY HISTORY: His mother had a history of NM and colon cancer. SOCIAL HISTORY: , has two children. Lives with friends. No alcohol, illicit drug use. REVIEW OF SYSTEMS: Positive for abdominal discomfort. PHYSICAL EXAMINATION: VITAL SIGNS: Temperature is 97.8, pulse is 80, respiratory rate 16, BP is 111/72. He is 97% on room air. GENERAL: Well-developed, well-nourished male, in no acute distress. HEENT: Normocephalic, atraumatic. Pupils are equal and reactive to light. NECK: Supple. CV: Regular rate and rhythm. LUNGS: Clear. ABDOMEN: Distended. He has splenomegaly. EXTREMITIES: No clubbing, cyanosis, or edema. SKIN: No rash. HEMATOLOGICAL: No petechiae or purpura. NEUROLOGICAL: Nonfocal. PERTINENT LABS AND X-RAYS: Current WBCs are 4.2, hemoglobin 7.9, hematocrit 24.5, platelet count 43,000. He has 40% neutrophils, 14% bands, 22% lymphocytes. PT is 14.0, INR is 1.1, PTT is 36.3. Sodium is 137, potassium 3.7, chloride 106, CO2 is 25, BUN is 8, creatinine 0.58, calcium 8.4, bilirubin is 1.8, AST is 46, ALT 66, alkaline phosphatase is 350. Serum total protein is 6, albumin 3, globulin 3. CEA is 199. CA 19-9 is 38. Radiology per HPI. ASSESSMENT: 1. New duodenal mass, worrisome for malignancy. 2. History of gallbladder adenocarcinoma. 3. Osteoporosis with hepatosplenomegaly. 4. Pancytopenia secondary to above. 5. Transfusion dependency secondary to osteoporosis. DISCUSSION: The patient unfortunately likely has recurrence of his malignancy. We will await final pathology. Case was discussed with Dr. Borges and Dr. Altamirano. We will recommend a surgical referral to [facility] at Dr. Turner. This will be done once the path is returned. He is being transfused a unit of packed RBCs and we will monitor his CBC closely. Thank you for the consult. Job ID: [id number]
--- NOTE | 2018-05-26 21:43 | PDOC.PN ---
- Subjective Encounter Start Date: 05/26/18 Encounter Start Time: 09:45 Patient seen and examined for Melena/Abn LFTs. Right sided abd pain - constant. No new complaints. No overnight events - Objective MAR Reviewed: Yes Vital Signs & Weight: Vital Signs (12 hours) Temp Pulse Pulse Resp BP BP BP 05/26/18 17:58 98.6 F 85 16 108/72 05/26/18 16:00 98 F 85 21 H 105/70 05/26/18 15:27 97.8 F 72 16 111/74 05/26/18 15:00 97.8 F 71 16 120/77 05/26/18 12:49 97.9 F 80 16 111/73 05/26/18 11:52 97.6 F 77 17 123/74 Pulse Ox 05/26/18 17:58 93 L 05/26/18 16:00 96 05/26/18 15:27 97 05/26/18 15:00 98 05/26/18 12:49 93 L 05/26/18 11:52 96 Weight Admit Weight 132 lb Weight 132 lb Most Recent Monitor Data Heart Rate from ECG 81 I&O: 05/25/18 05/26/18 05/27/18 06:59 06:59 06:59 Intake Total 620 2020 2200 Output Total 1853 900 Balance -1233 1120 2200 Result Diagrams: 05/26/18 05:03 05/26/18 05:03 Phys Exam - Physical Examination Constitutional: NAD Respiratory: no wheezing, no rhonchi Cardiovascular: RRR, no rub Gastrointestinal: soft, positive bowel sounds Rt sided tend+, no rebound/guarding Dx/Plan - Plan DVT proph w/SCDs IMPRESSION: 1. Abn LFTs/Obstructive jaundice due to stricture at the common hepatic duct with dilatation of the intrahepatic duct. 2. Melena/gastrointestinal bleeding with acute blood loss anemia due to duodenal ulcer/polyp. 3. Suspected bladder mass - follow up with Dr. Praveen Le as an outpatient 4. History of gallbladder adenocarcinoma, status post cholecystectomy with chemotherapy and radiation. 5. Pancytopenia. 6. History of chronic alcoholism. He quit drinking 3 years ago. 7. Osteopetrosis 8. 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 PLAN: Repeat EGD today Cont PPI Transfuse PRN Await ID input due to persistent bandemia Cont current meds as below AM labs Review of Systems - Review of Systems Respiratory: negative: Cough, Dry, Shortness of Breath, Hemoptysis, SOB with Excertion, Pleuritic Pain, Sputum, Wheezing Cardiovascular: negative: chest pain, palpitations, orthopnea, paroxysmal nocturnal dyspnea, edema, light headedness, other - Medications/Allergies Allergies/Adverse Reactions: Allergies Allergy/AdvReac Type Severity Reaction Status Date / Time No Known Allergies Allergy Verified 10/25/15 19:37 Medications: Current Medications Benzonatate (Tessalon) 100 mg PO TIDPRN PRN PRN Reason: Cough Sodium Chloride (Normal Saline 0.9%) 1,000 mls @ 70 mls/hr IV .[id number] [facility] Last Admin: 05/25/18 22:30 Dose: 1,000 mls Piperacillin Sod/Tazobactam (Sod 4.5 gm/ Sodium Chloride) 100 mls @ 200 mls/hr IVPB 0800,1600,2359 [facility] Last Admin: 05/26/18 15:12 Dose: 100 mls Metronidazole (Flagyl) 500 mg PO TID [facility] Last Admin: 05/26/18 15:12 Dose: 500 mg Morphine Sulfate (Morphine) 2 mg SLOW IVP Q6H PRN PRN Reason: Pain Last Admin: 05/25/18 22:31 Dose: 2 mg Ondansetron HCl (Zofran) 4 mg IVP Q6H PRN PRN Reason: Nausea/Vomiting Pantoprazole Sodium (Protonix) 40 mg IVP 0100,1300 [facility] Last Admin: 05/26/18 13:13 Dose: 40 mg Saccharomyces Boulardii (Florastor) 250 mg PO DAILY [facility] Last Admin: 05/26/18 08:42 Dose: 250 mg Senna/Docusate Sodium (Senokot S) 2 tab PO BID PRN PRN Reason: Constipation Last Admin: 05/24/18 08:56 Dose: 2 tab Sodium Chloride (Flush - Normal Saline) 10 ml IVF Q12HR [facility] Last Admin: 05/26/18 08:42 Dose: Not Given Sodium Chloride (Flush - Normal Saline) 10 ml IV 0100,1300 [facility] Last Admin: 05/26/18 13:14 Dose: 10 ml Sodium Chloride (Flush - Normal Saline) 10 ml IVF PRN PRN PRN Reason: Saline Flush Sodium Chloride (Flush - Normal Saline) 10 ml IVF PRN PRN PRN Reason: Saline Flush
[2018-05-26] MEDS: Sodium Chloride 0.9% 1,000 ML IV SCH (22:38)
[2018-05-27] MEDS: Pantoprazole 40 MG VIAL IVP SCH ×2 (00:14→14:18)
[2018-05-27] MEDS: Piperacillin/Tazobactam 4.5 GM in Sodium Chloride 0.9% 100 ML IVPB SCH ×3 (00:15→15:24)
[2018-05-27 06:52] LABS: Hemoglobin 9.3 g/dL (14.0-18.0); Mean Corpuscular HGB CONC 32.3 g/dL (32.0-36.0); Mean Corpuscular Hemoglobin 30.3 pg (27.0-31.0); Mean Corpuscular Volume 93.7 fL (78.0-98.0); Mean Platelet Volume 5.1 fL (7.4-10.4); Platelet Count 40 thou/uL (130-400); RBC Distribution Width 18.8 % (11.5-14.5); Red Blood Cell (RBC) Count 3.07 mill/uL (4.70-6.10); White Blood Cell (WBC) Count 4.4 thou/uL (4.8-10.8)
[2018-05-27 07:04] LABS: ALT (SGPT) 63 U/L (8-55); AST (SGOT) 49 U/L (5-34); Albumin 3.1 g/dL (3.5-5.0); Alkaline Phosphatase 318 U/L (40-150); Anion Gap 9 mmol/L (10-20); BUN (Urea Nitrogen) 7 mg/dL (8.4-25.7); Bilirubin, Total 1.8 mg/dL (0.2-1.2); Calc. Creatinine Clearance 114 mL/min (70-130); Calcium 8.5 mg/dL (7.8-10.44); Carbon Dioxide 26 mmol/L (22-29); Chloride 105 mmol/L (98-107); Estimated GFR-MDRD Greater than 90; Glucose 85 mg/dL (70-105); Magnesium 1.8 mg/dL (1.6-2.6); Potassium 3.9 mmol/L (3.5-5.1); Protein, Total 6.1 g/dL (6.0-8.3); Sodium 136 mmol/L (136-145)
[2018-05-27 07:41] LABS: Band 15 % (5-11); Eosinophils 1 % (0-10); Lymphocytes 6 % (21-51); MDiff Complete? YES; Metamyelocyte 5 % (0-0); Monocytes 3 % (0-10); Myelocyte 14 % (0-0); Neutrophil 56 % (42-75); Nucleated RBC 5 % (0); Polychromasia MODERATE = 3-4 cells (100X) (0-2/hpf); Tear Drops SLIGHT = 2-5 cells (100X) (0-1/hpf)
[2018-05-27] MEDS: Saccharomyces boulardii 250 MG CAP PO SCH (08:18)
[2018-05-27] MEDS: metroNIDAZOLE 500 MG TAB PO SCH ×2 (08:18→14:17)
[2018-05-27] MEDS: Sodium Chloride 0.9% 1,000 ML IV SCH (08:19)
--- NOTE | 2018-05-27 17:17 | PRG ---
DATE OF SERVICE: 05/27/2018 SUBJECTIVE: Mr. Rivers is stable. He is tolerating full liquids. OBJECTIVE: VITAL SIGNS: He has been afebrile. Temperature is 98.7, pulse 87, and blood pressure 109/72. ABDOMEN: Soft and nontender. LABORATORY DATA: White count is 4.4, hemoglobin 9.3, and platelet count 56,000. INR 1.1 on the 30th. Bilirubin is 1.8. AST and ALT are 49 and 63. Alkaline phosphatase is 318. Pathology from duodenal bulb mass is adenocarcinoma. ASSESSMENT: 1. Recurrent adenocarcinoma of the gallbladder involving eroding into the duodenal bulb. There is oozing with no overt hemorrhage, but this is a diffuse mass and the bleeding is not going to completely stop. He will appropriately get transfusions periodically as he was before when he was admitted. 2. 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 3. Biliary stricture, likely malignant, stented with normalization of liver function tests. 4. Osteopetrosis. 5. 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 RECOMMENDATIONS: 1. Stop antibiotics. There are no signs of perforation or infection. 2. Convert PPI to p.o. 3. Advance diet. 4. If the patient has ongoing issues with pain or bleeding, probably Hospice consult will be reasonable as I do not think there is going to be anything short of surgery that would stop the slow ooze, and I am not sure that he is a candidate for surgery in light of his previous issues with portal hypertension from the osteopetrosis and excessive bleeding at the time of his initial cancer diagnosis. I would expect it to be a much worse surgery at this time and Dr. Boswell has evaluated and felt that anything short of an emergency surgery would be prohibitive in this patient. We will follow up for this. If I can be of any further assistance in the patient's care, please do not hesitate to contact me. Job ID: [id number]
--- NOTE | 2018-05-27 20:39 | PDOC.PN ---
- Subjective Encounter Start Date: 05/27/18 Encounter Start Time: 09:45 Patient seen and examined for Abn LFTs/GI bleeding. No new complaints. No overnight events - Objective MAR Reviewed: Yes Vital Signs & Weight: Weight Admit Weight 132 lb Weight 132 lb Most Recent Monitor Data Heart Rate from ECG 81 I&O: 05/26/18 05/27/18 05/28/18 06:59 06:59 06:59 Intake Total 2019 2200 2650 Output Total 900 Balance 1120 2200 2650 Result Diagrams: 05/27/18 06:29 05/27/18 06:29 Phys Exam - Physical Examination Constitutional: NAD Respiratory: no wheezing, no rhonchi Cardiovascular: RRR, no rub Gastrointestinal: soft, non-tender, positive bowel sounds Musculoskeletal: no edema Neurological: moves all 4 limbs Dx/Plan - Plan DVT proph w/SCDs IMPRESSION: 1. Abn LFTs/Obstructive jaundice due to stricture at the common hepatic duct with dilatation of the intrahepatic duct. 2. Melena/gastrointestinal bleeding with acute blood loss anemia due to duodenal ulcer/polyp. 3. Suspected bladder mass - follow up with Dr. Praveen Le as an outpatient 4. History of gallbladder adenocarcinoma, status post cholecystectomy with chemotherapy and radiation. 5. Pancytopenia. 6. History of chronic alcoholism. He quit drinking 3 years ago. 7. Osteopetrosis 8. 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 PLAN: Atbx dced Resume chronic supp therapy with Augmentin HH in AM Cont other meds as below Oncology/ID input appreciated PPI changed to PO Review of Systems - Review of Systems Respiratory: negative: Cough, Dry, Shortness of Breath, Hemoptysis, SOB with Excertion, Pleuritic Pain, Sputum, Wheezing Cardiovascular: negative: chest pain, palpitations, orthopnea, paroxysmal nocturnal dyspnea, edema, light headedness, other - Medications/Allergies Allergies/Adverse Reactions: Allergies Allergy/AdvReac Type Severity Reaction Status Date / Time No Known Allergies Allergy Verified 10/25/15 19:37 Medications: Current Medications Amoxicillin/Clavulanate Potassium (Augmentin) mg PO Q12HR [place] Benzonatate (Tessalon) 100 mg PO TIDPRN PRN PRN Reason: Cough Morphine Sulfate (Morphine) 2 mg SLOW IVP Q6H PRN PRN Reason: Pain Last Admin: 05/25/18 22:31 Dose: 2 mg Ondansetron HCl (Zofran) 4 mg IVP Q6H PRN PRN Reason: Nausea/Vomiting Pantoprazole Sodium (Protonix) 40 mg PO DAILY [facility] Saccharomyces Boulardii (Florastor) 250 mg PO DAILY [facility] Last Admin: 05/27/18 08:18 Dose: 250 mg Senna/Docusate Sodium (Senokot S) 2 tab PO BID PRN PRN Reason: Constipation Last Admin: 05/24/18 08:56 Dose: 2 tab Sodium Chloride (Flush - Normal Saline) 10 ml IVF Q12HR [facility] Last Admin: 05/27/18 08:18 Dose: 10 ml Sodium Chloride (Flush - Normal Saline) 10 ml IVF PRN PRN PRN Reason: Saline Flush Sodium Chloride (Flush - Normal Saline) 10 ml IVF PRN PRN PRN Reason: Saline Flush
[2018-05-27] MEDS: Amoxicillin/Potassium Clav 875 MG TAB PO SCH (21:44)
[2018-05-28 07:15] VITALS: BP 107/69; TEMP 98
[2018-05-28 08:13] LABS: Hemoglobin 11.1 g/dL (14.0-18.0); Mean Corpuscular HGB CONC 31.6 g/dL (32.0-36.0); Mean Corpuscular Hemoglobin 29.4 pg (27.0-31.0); Mean Corpuscular Volume 93.3 fL (78.0-98.0); Mean Platelet Volume 6.6 fL (7.4-10.4); Platelet Count 58 thou/uL (130-400); RBC Distribution Width 18.9 % (11.5-14.5); Red Blood Cell (RBC) Count 3.76 mill/uL (4.70-6.10); White Blood Cell (WBC) Count 6.2 thou/uL (4.8-10.8)
[2018-05-28] MEDS: Saccharomyces boulardii 250 MG CAP PO SCH (08:17)
[2018-05-28] MEDS: Amoxicillin/Potassium Clav 875 MG TAB PO SCH (08:17)
[2018-05-28 08:56] LABS: Band 20 % (5-11); Hypochromia SLIGHT = 6-15 cells (100X) (0-5/hpf); Lymphocytes 15 % (21-51); MDiff Complete? YES; Metamyelocyte 8 % (0-0); Monocytes 14 % (0-10); Myelocyte 6 % (0-0); Neutrophil 37 % (42-75); Nucleated RBC 6 % (0); Ovalocytes SLIGHT = 2-5 cells (100X) (0-1/hpf); Platelet Morphology Comment Appears Decreased; Polychromasia MODERATE = 3-4 cells (100X) (0-2/hpf); Tear Drops SLIGHT = 2-5 cells (100X) (0-1/hpf)
[2018-05-28] MEDS ORDERED: traMADol HCl 50 MG TAB PO PRN ×2 (12:00)
[2018-05-28] MEDS ORDERED: Acetaminophen 500 MG TAB PO PRN (12:00)
--- NOTE | 2018-05-28 12:20 | PRG ---
DATE OF SERVICE: 05/28/2018 SUBJECTIVE: Mr. Rivers today is doing well. I used the wares sorter phone to discuss treatment with him. The patient's duodenal biopsies have returned consistent with adenocarcinoma consistent with his gallbladder primary. I have discussed with the patient these findings and informed him that he is not an operative candidate and that the only indication for an operation would be that if he developed a gastric outlet obstruction, at which time, he could have a gastrojejunostomy. His biliary obstruction has been relieved with a stent. He will need to follow up with Dr. Borges to follow the stents. I do not think referral to [place] is necessary as the patient's recurrent cancer is nonoperative. He could visit Oncology as an outpatient and consider palliative chemotherapy. I have talked to the patient using the wares sorter phone regarding code status. He understands we will continue care and can consider operations in the future if he develops a bowel obstruction. Otherwise, palliative care should be undertaken. He understands he has a terminal cancer and that is nonresectable. He agrees to a DNR status. He agrees that he does not want to be on the ventilator and does not want to have CPR. DNR will be ordered. The patient also agrees to a hospice evaluation and although hospice will not need to see him on a daily basis, they will need to be involved in his care in the future. Questions were answered. Questions invited. From my standpoint, the patient can be discharged home with oral antibiotics for a week and he can follow up in my office in 2 to 3 weeks and follow up to the Oncology. The patient has osteopetrosis, chronic anemia secondary to above requiring frequent blood transfusions, recurrent gallbladder cancer nonoperative, biliary obstruction relieved with biliary stenting secondary to his recurrent gallbladder cancer, and hepatosplenomegaly. Job ID: [id number]
--- NOTE | 2018-05-28 22:20 | DIS ---
DATE OF ADMISSION: 05/21/2018 DATE OF DISCHARGE: 05/28/2018 DISCHARGE DISPOSITION: Home. FOLLOWUP: 1. Follow up with Dr. Altamirano on 05/30/2018. 2. Follow up with Dr. Borges after 2 weeks. 3. Follow up with the [facility] in 1 to 2 weeks. 4. Follow up with Dr. Boswell and Dr. Cooper in 3 to 4 weeks. 5. Follow up with Dr. Praveen Le for suspected bladder mass on the CT scan. ALLERGIES: NO KNOWN DRUG ALLERGIES. CODE STATUS: Do not resuscitate. DISCHARGE MEDICATIONS: 1. Tylenol as needed. 2. Protonix 40 mg daily. 3. MiraLAX daily. 4. Augmentin 875 mg twice a day. Please note that the patient is on chronic Augmentin suppressive therapy for jaw osteomyelitis. The patient was seen and examined on the day of discharge. Denies any new complaints. Abdominal pain has improved. He denies any nausea or vomiting. INPATIENT PROCEDURES: 1. On 05/22/2018, the patient underwent endoscopic retrograde cholangiopancreatography with sphincterotomy and placement of common bile duct stent. Bile duct was dilated at 2 cm. There was a stricture at the common hepatic duct. There was also a duodenal mass. 2. On 05/26/2018, the patient underwent esophagogastroduodenoscopy that showed friable necrotic mass in the duodenum. Biopsies were obtained. BRIEF HOSPITAL COURSE: The patient is a 57-year-old male with gallbladder adenocarcinoma in the past, status post cholecystectomy and jaw osteomyelitis, on chronic suppressive therapy, presented to the hospital with abdominal discomfort as well as abnormal liver function tests. His bilirubin was 6.5 with alkaline phosphatase 687. He had a CT scan of the abdomen showed biliary dilatation. Please refer to the history and physical for further details. The patient was admitted on the medical floor with the above diagnoses. He underwent ERCP with stent placement as discussed above. 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 He also had a repeat CT scan of the abdomen at this time. He was seen by multiple consultants including Infectious Disease, General Surgery, Oncology, and Gastroenterology. He was also found to have bladder mass on the CT scan. He was advised to follow up with Dr. Praveen Le as an outpatient. SIGNIFICANT LABORATORY DATA: Bilirubin on admission 6.5, at discharge 1.8. Alkaline phosphatase 318 at discharge compared to 687 on admission. Hemoglobin on admission was 9.1, at discharge 11.1. Lowest hemoglobin was 7.4. He received total of 2 units of PRBC. Acute hepatitis profile was negative. CA 19-9 was 38. CEA was 1.9. FINAL DIAGNOSES: 1. Abdominal discomfort, multifactorial. 2. Abnormal LFTs/obstructive jaundice due to bile duct stricture, status post endoscopic retrograde cholangiopancreatography with stent placement. 3. 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 4. Acute blood loss anemia, status post 2 units of PRBC. 5. History of cholangiocarcinoma, status post cholecystectomy with chemotherapy and radiation. 6. Pancytopenia. 7. Osteopetrosis. 8. History of chronic alcoholism in the past. 9. History of jaw osteomyelitis, on chronic suppressive therapy with Augmentin. 10. Dehydration. Total time coordinating the discharge was 39 minutes. Job ID: [id number]
[2018-05-29] MEDS ORDERED: Polyethylene Glycol 3350 17 GM Packet PO SCH (09:00)
== END 2018-05-28 14:49 | disposition home or self-care (01) | DRG 374 ==
LOC: ERS 08:14 → ERHOLD 10:16 → T4-A 13:50
PROVIDERS: ADMIT Internal Medicine; ATTEND Internal Medicine
PROC: 0F798DZ Dilation of Common Bile Duct with Intraluminal Device, Via Natural or Artificial Opening Endoscopic (ICD-10-PCS; 2018-05-22)
PROC: 0DB98ZX Excision of Duodenum, Via Natural or Artificial Opening Endoscopic, Diagnostic (ICD-10-PCS; 2018-05-22)
PROC: 30233N1 Transfusion of Nonautologous Red Blood Cells into Peripheral Vein, Percutaneous Approach (ICD-10-PCS; principal; 2018-05-26)
PROC: 0W3P8ZZ Control Bleeding in Gastrointestinal Tract, Via Natural or Artificial Opening Endoscopic (ICD-10-PCS; 2018-05-26)
PROC: 0DB98ZX Excision of Duodenum, Via Natural or Artificial Opening Endoscopic, Diagnostic (ICD-10-PCS; 2018-05-26)
DX: C78.4 Secondary malignant neoplasm of small intestine (principal); K83.1 Obstruction of bile duct; K26.4 Chronic or unspecified duodenal ulcer with hemorrhage; D62 Acute posthemorrhagic anemia; D61.818 Other pancytopenia; Q78.2 Osteopetrosis; E86.0 Dehydration; M27.2 Inflammatory conditions of jaws; N32.89 Other specified disorders of bladder; R16.2 Hepatomegaly with splenomegaly, not elsewhere classified; D73.1 Hypersplenism; Z66 Do not resuscitate; Z90.49 Acquired absence of other specified parts of digestive tract; Z85.89 Personal history of malignant neoplasm of other organs and systems; Z79.2 Long term (current) use of antibiotics; Z92.3 Personal history of irradiation; Z92.21 Personal history of antineoplastic chemotherapy
CPT/HCPCS: 36415; 36416; 36430; 74160; 74177; 74330; 76700; 80048; 80053; 80074; 80076; 81003; 82274; 82378; 83690; 83735; 85014; 85018; 85025; 85610; 85730; 86301; 86850; 86900; 86901; 87040; 87086; 87389; 88305; 90471; 90670; 90686; 96361; 96374; 96375; 96376; C2625; C9113; G0008; G0009; J1100; J2001; J2250; J2270; J2405; J2543; J2704; J3010; J7050; P9016; Q9961; Q9966; Q9967

== ENCOUNTER 2018-08-01 14:00 | Day surgery (SDC) | payer MEDICARE, MEDICAID ==
[2018-08-01 23:11] VITALS: BP 106/55; TEMP 100.9
== END 2018-08-01 22:50 | disposition home or self-care (01) ==
LOC: ONC/OP 14:00 → ONC 14:00 → ONC/OP 22:50
PROVIDERS: ATTEND Internal Medicine Hematology & Oncology
PROC: 30233N1 Transfusion of Nonautologous Red Blood Cells into Peripheral Vein, Percutaneous Approach (ICD-10-PCS; principal; 2018-08-01)
DX: D64.9 Anemia, unspecified (principal)
CPT/HCPCS: 36430; 86850; 86900; 86901; P9016